=== PATIENT | female | born 1995 | race African-American/Black ===

== ENCOUNTER 2019-12-09 22:50 | Emergency (ER) | payer MEDICAID ==
[2019-12-09] MEDS ORDERED: LABETALOL HCL INJ 20 MG/4 ML DISP.SYRIN IV ONE (23:42)
--- NOTE | 2019-12-09 23:49 | ER Document Report ---
ED Blood Pressure Problem - General Chief Complaint: High Blood Pressure Stated Complaint: BLOOD PRESSURE Time Seen by Provider: 12/09/19 23:06 Primary Care Provider: [facility] [Provider Group] - 12/10/19 8:00 am Notes: Generally healthy 22-year-old G1, P0 28-week female presents to the emergency department with chief complaint of hypertension. Patient states that she just moved from [place], had a complete work-up and does not have any evidence of preeclampsia. Patient states she is unclear if she was hypertensive prior to but did get a diagnosis of gestational hypertension from her OB in [place]. Patient denies any vision changes, headache, epigastric or right upper quadrant pain, denies any peripheral swelling, no other complaints - Related Data Allergies/Adverse Reactions: strawberry Adverse Reaction (Severe, Verified 12/10/19 00:08) Hives Home Medications: LABATOLOL, PRE VITAMINS Past Medical History - Social History Smoking Status: Never Smoker Family History: None Patient has suicidal ideation: No Patient has homicidal ideation: No Review of Systems - Review of Systems Constitutional: See HPI EENT: See HPI Cardiovascular: No symptoms reported Respiratory: See HPI Gastrointestinal: See HPI Genitourinary: No symptoms reported Female Genitourinary: See HPI Musculoskeletal: No symptoms reported Skin: No symptoms reported Hematologic/Lymphatic: No symptoms reported Neurological/Psychological: No symptoms reported Physical Exam - Vital signs Vitals: Temp 100.0 F 12/09/19 22:52 - Notes Notes: PHYSICAL EXAMINATION: Reviewed vital signs and charting by RN GENERAL: Alert, interacts well. No acute distress. HEAD: Normocephalic, atraumatic. EYES: Pupils equal and round. Extraocular movements intact. ENT: Oral mucosa moist, tongue midline. NECK: Full range of motion. Trachea midline. LUNGS: Clear to auscultation bilaterally, no wheezes, rales, or rhonchi. No respiratory distress. HEART: Regular rate and rhythm. No murmur ABDOMEN: soft, non-tender. No distention. Bowel sounds present EXTREMITIES: Moves all 4 extremities spontaneously. No edema, No cyanosis. PSYCH: Normal affect, normal mood. SKIN: Warm, dry, normal turgor. No rashes or lesions noted. Course - Re-evaluation Re-evalutation: 12/09/19 23:46 Patient is well-appearing in no acute distress, completely asymptomatic. Patient states that she has been trending her blood pressures and they have been elevated. This is what prompted her to seek treatment. Patient is on labetalol 100 mg every 12 hours and is taking it as directed. After briefly discussing with my supervising physician plan is to give her labetalol 10 mg IV once and reassess. I will give her urgent referral to [facility]. 12/10/19 00:54 Patient responded to the labetalol IV, most recent blood pressure 146/101. I have given her referral to [facility]. Because she is asymptomatic she is deemed stable for discharge. She has been given strict return precautions. She is in agreement with the plan. - Vital Signs Vital signs: Temp Pulse Resp BP Pulse Ox 100.0 F 86 16 146/101 H 96 12/09/19 23:01 12/09/19 23:01 12/10/19 00:41 12/10/19 00:41 12/10/19 00:41 - Laboratory Result Diagrams: 12/09/19 23:38 12/09/19 23:38 Laboratory results interpreted by me: 12/09/19 12/09/19 23:38 23:38 WBC 12.7 H Hgb 11.1 L Hct 32.8 L RDW 15.4 H Absolute Neuts (auto) 9.0 H Sodium 133.1 L Albumin 3.3 L Discharge - Discharge Clinical Impression: Gestational hypertension Qualifiers: Trimester: third trimester Qualified Code(s): O13.3 - Gestational [- induced] hypertension without significant proteinuria, third trimester Condition: Good Disposition: HOME, SELF-CARE Additional Instructions: You were seen in the emergency department this evening for high blood pressure. It is reassuring that you are completely asymptomatic and your lab work did not show any significant changes from your previous lab work. We have given you a dose of IV antibiotics here in the emergency department to help bring it down. Please continue to take your labetalol as directed. We have given you a referral to [facility] and I want you to call them first thing tomorrow morning to set up a follow-up. Please return to the emergency department if you develop headache, blurred vision, altered mental status, peripheral swelling, right upper quadrant pain, shortness of breath, or you have any other concerning symptoms. Referrals: [facility] [Provider Group] - 12/10/19 8:00 am
[2019-12-09 23:51] LABS: ABSOLUTE BASOPHILS # (AUTO) 0.1 10^3/uL (0.0-0.2); ABSOLUTE EOSINOPHILS # (AUTO) 0.1 10^3/uL (0.0-0.6); ABSOLUTE LYMPHOCYTES (AUTO) 2.4 10^3/uL (0.5-4.7); BASOPHILS % (AUTO) 0.7 % (0-2); EOSINOPHILS % (AUTO) 0.8 % (0-6); HEMATOCRIT 32.8 % (36.0-47.0); HEMOGLOBIN 11.1 g/dL (12.0-15.5); MEAN CORPUSCULAR HEMOGLOBIN 27.4 pg (27.0-33.4); MEAN CORPUSCULAR HGB CONC 33.7 g/dL (32.0-36.0); MEAN CORPUSCULAR VOLUME 81 fl (80-97); MONOCYTES % (AUTO) 8.2 % (3-13); PLATELET COUNT 352 10^3/uL (150-450); RED BLOOD COUNT 4.04 10^6/uL (3.72-5.28); RED CELL DISTRIBUTION WIDTH 15.4 % (11.5-14.0); SEGMENTED NEUTROPHILS % (AUTO) 71.3 % (42-78); TOTAL CELLS COUNTED % (AUTO) 100 %; WHITE BLOOD COUNT 12.7 10^3/uL (4.0-10.5)
[2019-12-10 00:04] LABS: APPEARANCE,URINE CLOUDY; BILIRUBIN,URINE NEGATIVE (NEGATIVE); COLOR,URINE YELLOW; GLUCOSE, URINE NEGATIVE (NEGATIVE); KETONES,URINE NEGATIVE (NEGATIVE); LEUKOCYTE ESTERASE,URINE NEGATIVE (NEGATIVE); NITRITE,URINE NEGATIVE (NEGATIVE); PROTEIN,URINE NEGATIVE (NEGATIVE); UROBILINOGEN,URINE NEGATIVE mg/dL (<2.0)
[2019-12-10 00:11] LABS: ALBUMIN 3.3 g/dL (3.5-5.0); ALKALINE PHOSPHATASE 94 U/L (38-126); ANION GAP 7 (5-19); ASPARTATE AMINO TRANSFERASE 20 U/L (14-36); BILIRUBIN,TOTAL 0.3 mg/dL (0.2-1.3); BLOOD UREA NITROGEN 9 mg/dL (7-20); CALCIUM 9.2 mg/dL (8.4-10.2); CARBON DIOXIDE 23 mmol/L (22-30); CHLORIDE 103 mmol/L (98-107); GLUCOSE 99 mg/dL (75-110); POTASSIUM 4.5 mmol/L (3.6-5.0); TOTAL PROTEIN 6.3 g/dL (6.3-8.2)
[2019-12-10 00:46] VITALS: BP 146/101
== END 2019-12-10 01:30 | disposition home or self-care (01) ==
LOC: ER 22:50
DX: O13.3 Gestational [pregnancy-induced] hypertension without significant proteinuria, third trimester (principal); Z3A.28 28 weeks gestation of pregnancy
CPT/HCPCS: 99283; 96374; 36415; 85025; 80053; 81001; J3490

== ENCOUNTER 2020-01-17 14:42 | Outpatient (CLI) | payer MEDICAID ==
[2020-01-17] MEDS ORDERED: NIFEDIPINE 10 MG CAPSULE SL ONE (15:36)
[2020-01-17 15:39] LABS: APPEARANCE,URINE CLEAR; BILIRUBIN,URINE NEGATIVE (NEGATIVE); COLOR,URINE YELLOW; GLUCOSE, URINE NEGATIVE (NEGATIVE); KETONES,URINE NEGATIVE (NEGATIVE); LEUKOCYTE ESTERASE,URINE NEGATIVE (NEGATIVE); NITRITE,URINE NEGATIVE (NEGATIVE); PROTEIN,URINE NEGATIVE (NEGATIVE); URINE SPECIFIC GRAVITY 1.004; UROBILINOGEN,URINE NEGATIVE mg/dL (<2.0)
[2020-01-17] MEDS ORDERED: NIFEDIPINE 10 MG CAPSULE ONE (15:43)
[2020-01-17 15:58] LABS: UR PRO/CREAT RATIO RESULT 0.4 mg/mg (0.0-0.2); URINE AMPHETAMINES SCREEN NEGATIVE; URINE BARBITURATES SCREEN NEGATIVE; URINE BENZODIAZEPINES SCREEN NEGATIVE; URINE COCAINE SCREEN NEGATIVE; URINE CREATININE 64.7 mg/dL (16-327); URINE MARIJUANA (THC) SCREEN NEGATIVE; URINE METHADONE SCREEN NEGATIVE; URINE PHENCYCLIDINE SCREEN NEGATIVE; URINE PROTEIN 25.5 mg/dL (<12)
[2020-01-17 16:35] LABS: ABSOLUTE EOSINOPHILS # (AUTO) 0.1 10^3/uL (0.0-0.6); ABSOLUTE LYMPHOCYTES (AUTO) 1.6 10^3/uL (0.5-4.7); ABSOLUTE MONOCYTES (AUTO) 0.8 10^3/uL (0.1-1.4); ABSOLUTE NEUT (AUTO) 5.2 10^3/uL (1.7-8.2); BASOPHILS % (AUTO) 0.4 % (0-2); EOSINOPHILS % (AUTO) 1.9 % (0-6); HEMATOCRIT 35.4 % (36.0-47.0); LYMPHOCYTES % (AUTO) 20.4 % (13-45); MEAN CORPUSCULAR HEMOGLOBIN 27.8 pg (27.0-33.4); MEAN CORPUSCULAR HGB CONC 33.8 g/dL (32.0-36.0); MEAN CORPUSCULAR VOLUME 82 fl (80-97); MONOCYTES % (AUTO) 10.6 % (3-13); PLATELET COUNT 249 10^3/uL (150-450); RED BLOOD COUNT 4.31 10^6/uL (3.72-5.28); SEGMENTED NEUTROPHILS % (AUTO) 66.7 % (42-78); TOTAL CELLS COUNTED % (AUTO) 100 %; WHITE BLOOD COUNT 7.7 10^3/uL (4.0-10.5)
[2020-01-17 16:37] LABS: ALBUMIN 3.4 g/dL (3.5-5.0); ALKALINE PHOSPHATASE 140 U/L (38-126); ANION GAP 6 (5-19); ASPARTATE AMINO TRANSFERASE 39 U/L (14-36); BILIRUBIN,TOTAL 0.2 mg/dL (0.2-1.3); BLOOD UREA NITROGEN 10 mg/dL (7-20); CALCIUM 9.1 mg/dL (8.4-10.2); CARBON DIOXIDE 24 mmol/L (22-30); CHLORIDE 102 mmol/L (98-107); GLUCOSE 78 mg/dL (75-110); POTASSIUM 4.4 mmol/L (3.6-5.0); TOTAL PROTEIN 6.4 g/dL (6.3-8.2); URIC ACID 6.1 mg/dL (2.5-6.2)
--- NOTE | 2020-01-18 02:45 | Non Stress Test Report ---
Non Stress Test Datetime Report Generated by CPN: 01/18/2020 02:45 DEMOGRAPHIC EGA NST: 33.4 MONITORING Monitor Explained: Monitor Explained; Test Explained; Patient Verbalized Understanding Time on Monitor: 01/17/2020 15:00 Time off Monitor: 01/17/2020 15:30 NST Duration: 30 NST INTERVENTIONS NST Interventions: None Physician Notified NST: Dr. Chand and A Pugh,CNM BABY A: [id number] BABY A Movement : Present Contraction Frequency : None FHR Baseline : 140 Accelerations : 15X15 Decelerations : None Variability : Moderate 6-25bpm NST Review: Questionable if Meets Criteria for Reactive NST NST Review and Verified By : Emilio Brooks RN NST Results: Reactive NST REPORT Report Trigger: Send Report
--- NOTE | 2020-01-18 03:09 | Admission Physical ---
Datetime Report Generated by CPN: 01/18/2020 03:09 CURRENT ADMISSION Chief Complaint: Signs/Symptoms Gestational HTN Indication for Induction: Not Applicable Admit Impression : , Intrauterine Admit Plan: Admit to Unit ALLERGIES Medication Allergies: No Medication Allergies: strawberry/SV/Hives (12/10/2019) OBSTETRICAL HISTORY EDC: 03/02/2020 00:00 : 1 Para: 0 Term: 0 : 0 SAB: 0 IAB: 0 Livin PHYSICAL EXAM General: Normal HEENT: Normal Neurologic: Normal Thyroid: Normal Heart: Normal Lungs: Normal Breast: Deferred Back: Normal Abdomen: Normal Genitourinary Exam: Normal Extremities: Normal DTRs: Normal Pelvic Type: Adequate Vital Signs: Reviewed FETUS A EGA: 33.5 FHR- Baseline: 130 Variability: Moderate 6-25bpm Decelerations: None FHR Category: Category I Admit Comment: Admit and evaluate for severe pre e. INFORMED CONSENT Signature: with User ID: [email or web address]
--- NOTE | 2020-01-18 05:05 | Non Stress Test Report ---
Non Stress Test Datetime Report Generated by CPN: 01/18/2020 05:05 DEMOGRAPHIC EGA NST: 33.5 INDICATION Indication for Study (NST) Other: gestational age > 32 weeks MONITORING Monitor Explained: Monitor Explained; Test Explained; Patient Verbalized Understanding Time on Monitor: 01/18/2020 03:01 Time off Monitor: 01/18/2020 03:34 NST Duration: 33 NST INTERVENTIONS NST Interventions: PO Hydration; Reposition Patient Physician Notified NST: dr mercer BABY A Movement : Present Contraction Frequency : 0 FHR Baseline : 135 Accelerations : 15X15 Decelerations : None Variability : Moderate 6-25bpm NST Review: Meets Criteria for Reactive NST NST Review and Verified By : Shona Lacey RN NST Results: Reactive NST REPORT Report Trigger: Send Report
== END 2020-01-17 17:16 | disposition home or self-care (01) ==
LOC: LC 14:42
PROVIDERS: ATTEND Obstetrics & Gynecology
DX: O36.8320 Maternal care for abnormalities of the fetal heart rate or rhythm, second trimester, not applicable or unspecified (principal); O13.3 Gestational [pregnancy-induced] hypertension without significant proteinuria, third trimester; O60.03 Preterm labor without delivery, third trimester; Z3A.33 33 weeks gestation of pregnancy
CPT/HCPCS: 59025; 36415; 83615; 84156; 84550; 82570; 85025; 80053; 81001; 80307; J3490

== ENCOUNTER 2020-01-18 02:43 | Inpatient (IN) | payer MEDICAID ==
[2020-01-18] MEDS ORDERED: RINGERS SOLUTION,LACTATED 1,000 ML IV ONE (03:12)
[2020-01-18] MEDS ORDERED: HYDRALAZINE HCL INJ/PF 20 MG/1 ML SDV IV ONE ×5 (03:13→17:07)
[2020-01-18] MEDS ORDERED: HYDRALAZINE HCL INJ/PF 20 MG/1 ML SDV ONE ×5 (03:17→20:25)
[2020-01-18 03:34] LABS: ABSOLUTE BASOPHILS # (AUTO) 0.1 10^3/uL (0.0-0.2); ABSOLUTE EOSINOPHILS # (AUTO) 0.2 10^3/uL (0.0-0.6); ABSOLUTE LYMPHOCYTES (AUTO) 2.5 10^3/uL (0.5-4.7); ABSOLUTE MONOCYTES (AUTO) 0.9 10^3/uL (0.1-1.4); ABSOLUTE NEUT (AUTO) 5.8 10^3/uL (1.7-8.2); BASOPHILS % (AUTO) 0.8 % (0-2); HEMATOCRIT 34.9 % (36.0-47.0); HEMOGLOBIN 11.8 g/dL (12.0-15.5); LYMPHOCYTES % (AUTO) 26.4 % (13-45); MEAN CORPUSCULAR HEMOGLOBIN 27.3 pg (27.0-33.4); MEAN CORPUSCULAR HGB CONC 33.9 g/dL (32.0-36.0); MEAN CORPUSCULAR VOLUME 81 fl (80-97); MONOCYTES % (AUTO) 9.9 % (3-13); PLATELET COUNT 244 10^3/uL (150-450); RED BLOOD COUNT 4.34 10^6/uL (3.72-5.28); RED CELL DISTRIBUTION WIDTH 16.7 % (11.5-14.0); SEGMENTED NEUTROPHILS % (AUTO) 60.9 % (42-78); TOTAL CELLS COUNTED % (AUTO) 100 %; WHITE BLOOD COUNT 9.5 10^3/uL (4.0-10.5)
[2020-01-18] MEDS ORDERED: OXYCODONE-ACETAMINOPHEN 5-325 MG TABLET PO PRN (04:13)
[2020-01-18] MEDS ORDERED: OXYCODONE-ACETAMINOPHEN 5-325 MG TABLET ONE (04:20)
[2020-01-18] MEDS ORDERED: LABETALOL HCL 200 MG TABLET ONE ×4 (07:48→23:57)
[2020-01-18] MEDS ORDERED: LABETALOL HCL 200 MG TABLET PO SCH ×2 (08:00→16:00)
[2020-01-18] MEDS ORDERED: LABETALOL HCL 200 MG TABLET PO ONE (08:51)
--- NOTE | 2020-01-18 08:57 | RADIOLOGY REPORT (SQ) ---
EXAM DESCRIPTION: U/S OB LIMITED IMAGES COMPLETED DATE/TIME: 01/18/2020 5:03 am REASON FOR STUDY: estimated weight COMPARISON: None. TECHNIQUE: Limited transabdominal grayscale ultrasound for evaluation of specific requested obstetri manisha parameters. LIMITATIONS: None. FINDINGS: CERVICAL LENGTH: 3 cm Closed. SAM: 10.4 cm. FHR: 150 beats per minute. PRESENTATION: Vertex. PLACENTA: Anterior ANATOMY: Not assessed EFW: 3 lbs 8 oz +/- 8 oz OTHER: No other findings. IMPRESSION: LIMITED OBSTETRICAL ULTRASOUND WITH MEASURED PARAMETERS DELINEATED ABOVE. Trimester of : Third trimester - 28 weeks to delivery. TECHNICAL DOCUMENTATION: JOB ID: [id number] 2010 [employer]- All Rights Reserved Reading location - IP/workstation name: [email or web address]
[2020-01-18] MEDS ORDERED: BETAMET ACET/BETAMET NA INJ 6 MG/1 ML ONE (09:01)
[2020-01-18 09:25] LABS: ABSOLUTE BASOPHILS # (AUTO) 0.1 10^3/uL (0.0-0.2); ABSOLUTE EOSINOPHILS # (AUTO) 0.2 10^3/uL (0.0-0.6); ABSOLUTE LYMPHOCYTES (AUTO) 1.9 10^3/uL (0.5-4.7); ABSOLUTE MONOCYTES (AUTO) 0.6 10^3/uL (0.1-1.4); ABSOLUTE NEUT (AUTO) 5.5 10^3/uL (1.7-8.2); BASOPHILS % (AUTO) 0.8 % (0-2); EOSINOPHILS % (AUTO) 2.4 % (0-6); HEMATOCRIT 37.3 % (36.0-47.0); HEMOGLOBIN 12.4 g/dL (12.0-15.5); LYMPHOCYTES % (AUTO) 23.1 % (13-45); MEAN CORPUSCULAR HEMOGLOBIN 27.1 pg (27.0-33.4); MEAN CORPUSCULAR HGB CONC 33.3 g/dL (32.0-36.0); MEAN CORPUSCULAR VOLUME 82 fl (80-97); MONOCYTES % (AUTO) 7.7 % (3-13); PLATELET COUNT 261 10^3/uL (150-450); RED BLOOD COUNT 4.57 10^6/uL (3.72-5.28); RED CELL DISTRIBUTION WIDTH 17.1 % (11.5-14.0); TOTAL CELLS COUNTED % (AUTO) 100 %; WHITE BLOOD COUNT 8.3 10^3/uL (4.0-10.5)
[2020-01-18] MEDS ORDERED: BUTALB/ACETAMINOPHEN/CAFFEINE 1 TAB EACH ONE (09:26)
[2020-01-18] MEDS ORDERED: BUTALB/ACETAMINOPHEN/CAFFEINE 1 TAB EACH PO ONE (09:28)
[2020-01-18 09:45] LABS: ALBUMIN 3.3 g/dL (3.5-5.0); ALKALINE PHOSPHATASE 144 U/L (38-126); ANION GAP 8 (5-19); ASPARTATE AMINO TRANSFERASE 38 U/L (14-36); BILIRUBIN,TOTAL 0.2 mg/dL (0.2-1.3); BLOOD UREA NITROGEN 13 mg/dL (7-20); CALCIUM 9.2 mg/dL (8.4-10.2); CARBON DIOXIDE 20 mmol/L (22-30); CHLORIDE 106 mmol/L (98-107); GLUCOSE 112 mg/dL (75-110); POTASSIUM 3.9 mmol/L (3.6-5.0); TOTAL PROTEIN 6.2 g/dL (6.3-8.2); URIC ACID 6.2 mg/dL (2.5-6.2)
--- NOTE | 2020-01-18 10:20 | PDOC PROGRESS REPORT ---
Subjective Progress Note for:: 01/18/20 Subjective:: Doing well. Still mild TAOBR after percocet last night. Rates at 4/10 . No CP, SOB, RUQ pain or vision changes. Denies N/v She reports hx of migraines and TABOR form tooth grinding for which FIoricet has helped previoulsy. Good FM. NO LOF or VB Reason For Visit: Physical Exam - Physical Exam Vital Signs: Intake & Output 01/17/20 01/18/20 01/19/20 06:59 06:59 06:59 Weight 107.1 kg General appearance: PRESENT: no acute distress Respiratory exam: PRESENT: clear to auscultation keri Cardiovascular exam: PRESENT: RRR, +S1, +S2 GI/Abdominal exam: PRESENT: normal bowel sounds, soft - NOn-tender Neurological exam: PRESENT: alert, awake, oriented to person, oriented to place, oriented to time Psychiatric exam: PRESENT: appropriate affect, normal mood Skin exam: PRESENT: dry, intact, warm Result Laboratory Results: 01/18/20 08:59 01/18/20 08:59 01/18/20 01/18/20 01/18/20 03:21 03:21 08:59 WBC 9.5 8.3 RBC 4.34 4.57 Hgb 11.8 L 12.4 Hct 34.9 L 37.3 MCV 81 82 MCH 27.3 27.1 MCHC 33.9 33.3 RDW 16.7 H 17.1 H Plt Count 244 261 Seg Neutrophils % 60.9 66.0 Sodium Potassium Chloride Carbon Dioxide Anion Gap BUN Creatinine Est GFR ( Amer) Glucose Uric Acid Calcium Total Bilirubin AST Alkaline Phosphatase Total Protein Albumin Blood Type A POSITIVE Antibody Screen NEGATIVE 01/18/20 08:59 WBC RBC Hgb Hct MCV MCH MCHC RDW Plt Count Seg Neutrophils % Sodium 133.5 L Potassium 3.9 Chloride 106 Carbon Dioxide 20 L Anion Gap 8 BUN 13 Creatinine 0.73 Est GFR ( Amer) > 60 Glucose 112 H Uric Acid 6.2 Calcium 9.2 Total Bilirubin 0.2 AST 38 H Alkaline Phosphatase 144 H Total Protein 6.2 L Albumin 3.3 L Blood Type Antibody Screen Impressions: Obstetrics Ultrasound 01/18/20 03:50 IMPRESSION: LIMITED OBSTETRICAL ULTRASOUND WITH MEASURED PARAMETERS DELINEATED ABOVE. Trimester of : Third trimester - 28 weeks to delivery. Assessment & Plan - Diagnosis (2) Headache Qualifiers: Headache type: unspecified Is this a current diagnosis for this admission?: Yes - Time Time Spent with patient: Less than 15 minutes - Plan Summary Plan Summary: 24 yo G1 at 33.5 wks EGA admitted for severe range blood pressures in : Rule out preeclampsia -VS Q 4 hrs, call for severe range b/p >160 systolic or > 110 diastolic -NST BID -OUt of bed as tolerating -Regular diet -BMZ x1 this AM. THis is her second course ( she had BMZ x2 at approx 27 wks EGA ) Repeat in am (dose #2 this course) -GBS obtained on admit -24 urine pending. P:C 0.4 -B/P still elevated on home med Labetolol 200gm TID and reports TABOR after nifedipine SL and PO given yesterday. WIll stop Nifedipine and double dose of labetolol to 400mg TID -US yesterday normal -Continue montioring and if severe preE dx by 24 hour urine the recommend IOL in 34 wks. If negative can monitor closely outpatient once b/p control obtained
[2020-01-18] MEDS: RINGERS SOLUTION,LACTATED 1,000 ML IV PRN ×2 (10:35→12:04)
[2020-01-18 18:15] LABS: 24 HOUR URINE PROTEIN RESULT 1467 mg/day (42-225); URINE PROTEIN 38.2 mg/dL (<12)
[2020-01-18] MEDS: HYDRALAZINE HCL 10 MG TABLET PO SCH (18:17)
[2020-01-18 19:59] LABS: ABSOLUTE LYMPHOCYTES (AUTO) 0.9 10^3/uL (0.5-4.7); ABSOLUTE MONOCYTES (AUTO) 0.2 10^3/uL (0.1-1.4); BASOPHILS % (AUTO) 0.1 % (0-2); HEMATOCRIT 37.4 % (36.0-47.0); HEMOGLOBIN 12.6 g/dL (12.0-15.5); MEAN CORPUSCULAR HEMOGLOBIN 27.7 pg (27.0-33.4); MEAN CORPUSCULAR HGB CONC 33.8 g/dL (32.0-36.0); MEAN CORPUSCULAR VOLUME 82 fl (80-97); MONOCYTES % (AUTO) 1.8 % (3-13); PLATELET COUNT 278 10^3/uL (150-450); RED BLOOD COUNT 4.57 10^6/uL (3.72-5.28); RED CELL DISTRIBUTION WIDTH 17.2 % (11.5-14.0); SEGMENTED NEUTROPHILS % (AUTO) 89.1 % (42-78); TOTAL CELLS COUNTED % (AUTO) 100 %; WHITE BLOOD COUNT 10.1 10^3/uL (4.0-10.5)
[2020-01-18 20:16] LABS: ALBUMIN 3.3 g/dL (3.5-5.0); ALKALINE PHOSPHATASE 144 U/L (38-126); ANION GAP 8 (5-19); ASPARTATE AMINO TRANSFERASE 35 U/L (14-36); BILIRUBIN,TOTAL 0.2 mg/dL (0.2-1.3); BLOOD UREA NITROGEN 15 mg/dL (7-20); CALCIUM 9.3 mg/dL (8.4-10.2); CARBON DIOXIDE 19 mmol/L (22-30); CHLORIDE 103 mmol/L (98-107); GLUCOSE 169 mg/dL (75-110); POTASSIUM 4.6 mmol/L (3.6-5.0); TOTAL PROTEIN 6.6 g/dL (6.3-8.2); URIC ACID 5.9 mg/dL (2.5-6.2)
[2020-01-18] MEDS ORDERED: MAGNESIUM SULFATE 4 GM/100 ML RTUPB IV ONE ×2 (20:45→21:01)
[2020-01-18] MEDS ORDERED: HYDROXYZINE PAMOATE 50 MG CAPSULE PO ONE (20:48)
[2020-01-18] MEDS ORDERED: DINOPROSTONE 10 MG VAGINAL INSERT.SR PV ONE (21:00)
[2020-01-18] MEDS ORDERED: HYDROXYZINE PAMOATE 50 MG CAPSULE ONE (21:01)
[2020-01-18] MEDS ORDERED: MAGNESIUM SULFATE 20 GM/500 ML RTUINJ IV ONE (21:01)
[2020-01-18] MEDS ORDERED: DINOPROSTONE 10 MG VAGINAL INSERT.SR ONE (21:02)
[2020-01-18] MEDS: MAGNESIUM SULFATE 20 GM/500 ML RTUINJ IV PRN (22:04)
[2020-01-19] MEDS ORDERED: HYDRALAZINE HCL 10 MG TABLET PO SCH
[2020-01-19] MEDS: HYDRALAZINE HCL 10 MG TABLET PO SCH ×4 (00:02→17:56)
[2020-01-19] MEDS: LABETALOL HCL 200 MG TABLET PO SCH ×3 (00:02→16:44)
[2020-01-19] MEDS ORDERED: BETAMET ACET/BETAMET NA INJ 6 MG/1 ML ONE (06:03)
[2020-01-19 06:22] LABS: ABSOLUTE LYMPHOCYTES (AUTO) 1.5 10^3/uL (0.5-4.7); ABSOLUTE MONOCYTES (AUTO) 0.7 10^3/uL (0.1-1.4); ABSOLUTE NEUT (AUTO) 12.5 10^3/uL (1.7-8.2); BASOPHILS % (AUTO) 0.3 % (0-2); HEMATOCRIT 33.4 % (36.0-47.0); HEMOGLOBIN 11.3 g/dL (12.0-15.5); LYMPHOCYTES % (AUTO) 9.9 % (13-45); MEAN CORPUSCULAR HEMOGLOBIN 27.4 pg (27.0-33.4); MEAN CORPUSCULAR HGB CONC 33.7 g/dL (32.0-36.0); MEAN CORPUSCULAR VOLUME 81 fl (80-97); MONOCYTES % (AUTO) 4.6 % (3-13); PLATELET COUNT 223 10^3/uL (150-450); RED BLOOD COUNT 4.11 10^6/uL (3.72-5.28); RED CELL DISTRIBUTION WIDTH 16.9 % (11.5-14.0); SEGMENTED NEUTROPHILS % (AUTO) 85.2 % (42-78); TOTAL CELLS COUNTED % (AUTO) 100 %; WHITE BLOOD COUNT 14.6 10^3/uL (4.0-10.5)
[2020-01-19 06:58] LABS: ALBUMIN 2.8 g/dL (3.5-5.0); ALKALINE PHOSPHATASE 147 U/L (38-126); ANION GAP 6 (5-19); ASPARTATE AMINO TRANSFERASE 39 U/L (14-36); BILIRUBIN,TOTAL 0.3 mg/dL (0.2-1.3); BLOOD UREA NITROGEN 12 mg/dL (7-20); CALCIUM 7.7 mg/dL (8.4-10.2); CARBON DIOXIDE 18 mmol/L (22-30); CHLORIDE 104 mmol/L (98-107); GLUCOSE 91 mg/dL (75-110); POTASSIUM 4.5 mmol/L (3.6-5.0); TOTAL PROTEIN 5.7 g/dL (6.3-8.2); URIC ACID 6.2 mg/dL (2.5-6.2)
[2020-01-19 08:23] LABS: CHLAM PCR NOT DETECTED (NOT DETECT)
[2020-01-19] MEDS ORDERED: MAGNESIUM SULFATE 20 GM/500 ML RTUINJ IV ONE (08:51)
[2020-01-19] MEDS: MAGNESIUM SULFATE 20 GM/500 ML RTUINJ IV PRN (08:53)
[2020-01-19] MEDS ORDERED: OXYTOCIN/0.9 % SODIUM CHLORIDE 30 UNIT/500 ML RTUINJ IV PRN ×2 (09:32→23:52)
[2020-01-19] MEDS ORDERED: LABETALOL HCL 200 MG TABLET ONE ×2 (09:39→16:20)
[2020-01-19] MEDS ORDERED: OXYTOCIN/0.9 % SODIUM CHLORIDE 30 UNIT/500 ML RTUINJ ONE ×2 (09:45→22:20)
[2020-01-19] MEDS ORDERED: PENICILLIN G POTASSIUM 5,000,000 UNIT in DEXTROSE 5%-WATER 100 ML IV ONE (10:37)
[2020-01-19] MEDS ORDERED: PENICILLIN G-K 5 MILLION UNIT VIAL ONE (10:38)
[2020-01-19] MEDS ORDERED: HYDRALAZINE HCL INJ/PF 20 MG/1 ML SDV IV ONE (11:41)
[2020-01-19] MEDS ORDERED: HYDRALAZINE HCL INJ/PF 20 MG/1 ML SDV ONE (11:43)
[2020-01-19] MEDS ORDERED: MAGNESIUM SULFATE 20 GM/500 ML RTUINJ IV PRN (12:00)
[2020-01-19] MEDS: PENICILLIN G POTASSIUM 2,500,000 UNIT in DEXTROSE 5%-WATER 50 ML IV SCH ×2 (14:59→19:34)
[2020-01-19] MEDS: RINGERS SOLUTION,LACTATED 1,000 ML IV PRN (19:34)
[2020-01-19] MEDS ORDERED: METHYLERGONOVINE MALEATE INJ/PF 0.2 MG/1 ML AMPULE ONE (21:59)
[2020-01-19] MEDS ORDERED: CITRIC ACID/SODIUM CITRATE ORAL SOLN 15 ML UDCUP ONE (21:59)
[2020-01-19] MEDS ORDERED: MISOPROSTOL 0.2 MG TABLET ONE ×2 (21:59→22:15)
[2020-01-19] MEDS ORDERED: CEFAZOLIN 1 GM/D5W RTU 2 GM/100 ML RTUPB IV ONE (21:59)
--- NOTE | 2020-01-19 22:00 | Brief Operative Note ---
BRIEF OPERATIVE REPORT DATE OF SURGERY: 01/19/20 TIME OF SURGERY: 22:30 PREOPERATIVE DIAGNOSIS: 33+6ega, Severe PreE, Nonreassuring FHTs, IUGR. POSTOPERATIVE DIAGNOSIS: CHANDRA SURGEON: MAGALY UGALDE FINDINGS: VFI delivered at 2256, weight 3#0.6oz (1379g), Apgars 4/7. IVF 1000ml, UOP 400ml, EBL 800ml. QBL 500ml COMPLICATIONS: None ESTIMATED BLOOD LOSS: 800ml TISSUE REMOVED OR ALTERED: placenta and cord sent to pathology TECHNICAL PROCEDURE: Primary section.
[2020-01-19] MEDS ORDERED: PHENYLEPHRINE HCL INJ/PF 10 MG/1 ML SDV ONE (22:19)
[2020-01-19] MEDS ORDERED: KETOROLAC TROMETHAMINE INJ/PF 30 MG/1 ML SDV ONE (22:19)
[2020-01-19] MEDS ORDERED: MIDAZOLAM 2 MG/2 ML INJ ONE (22:19)
[2020-01-19] MEDS ORDERED: FENTANYL CITRATE INJ/PF 100 MCG/2 ML AMPUL ONE (22:19)
[2020-01-19] MEDS ORDERED: GLYCOPYRROLATE INJ 0.4 MG/2 ML VIAL ONE (22:19)
[2020-01-19] MEDS ORDERED: OXYTOCIN 10 UNIT/ML VIAL ONE ×2 (22:19→22:24)
[2020-01-19] MEDS ORDERED: ONDANSETRON HCL INJ/PF 4 MG/2 ML SDV ONE (22:20)
[2020-01-19] MEDS ORDERED: CEFAZOLIN SODIUM 2 GM in DEXTROSE 5%-WATER 50 ML IV PRN (22:22)
[2020-01-19 22:25] LABS: ABSOLUTE LYMPHOCYTES (AUTO) 1.2 10^3/uL (0.5-4.7); ABSOLUTE MONOCYTES (AUTO) 0.6 10^3/uL (0.1-1.4); ABSOLUTE NEUT (AUTO) 13.9 10^3/uL (1.7-8.2); BASOPHILS % (AUTO) 0.1 % (0-2); HEMOGLOBIN 11.5 g/dL (12.0-15.5); LYMPHOCYTES % (AUTO) 7.5 % (13-45); MEAN CORPUSCULAR HGB CONC 32.8 g/dL (32.0-36.0); MEAN CORPUSCULAR VOLUME 82 fl (80-97); PLATELET COUNT 264 10^3/uL (150-450); RED BLOOD COUNT 4.26 10^6/uL (3.72-5.28); RED CELL DISTRIBUTION WIDTH 17.7 % (11.5-14.0); SEGMENTED NEUTROPHILS % (AUTO) 88.4 % (42-78); TOTAL CELLS COUNTED % (AUTO) 100 %; WHITE BLOOD COUNT 15.7 10^3/uL (4.0-10.5)
[2020-01-19] MEDS ORDERED: CARBOPROST TROMETHAMINE INJ 250 MCG/1 ML AMPULE ONE (22:25)
[2020-01-19 22:59] LABS: ALBUMIN 2.9 g/dL (3.5-5.0); ALKALINE PHOSPHATASE 147 U/L (38-126); ASPARTATE AMINO TRANSFERASE 38 U/L (14-36); BILIRUBIN,TOTAL 0.3 mg/dL (0.2-1.3); BLOOD UREA NITROGEN 11 mg/dL (7-20); CALCIUM 7.2 mg/dL (8.4-10.2); CARBON DIOXIDE 21 mmol/L (22-30); CHLORIDE 103 mmol/L (98-107); GLUCOSE 111 mg/dL (75-110); TOTAL PROTEIN 5.7 g/dL (6.3-8.2); URIC ACID 6.1 mg/dL (2.5-6.2)
[2020-01-19 23:05] LABS: ANION GAP 4 (5-19)
[2020-01-19] MEDS ORDERED: ACETAMINOPHEN 1,000 MG/100 ML RTUPB IV PRN (23:52)
[2020-01-19] MEDS ORDERED: PROMETHAZINE HCL INJ 25 MG/1 ML VIAL IV PRN (23:52)
[2020-01-19] MEDS ORDERED: HYDROMORPHONE HCL INJ/PF 2 MG/ML AMPULE IV PRN (23:52)
[2020-01-19] MEDS ORDERED: OXYCODONE-ACETAMINOPHEN 5-325 MG TABLET PO PRN (23:52)
[2020-01-19] MEDS ORDERED: DIPH/PERTUSS(ACELL)/TETANUS VAC/PF 0.5 ML SYR (>=10YO) IM PRN (23:52)
[2020-01-19] MEDS ORDERED: MEASLES,MUMPS&RUBELLA VACC/PF 0.5 ML VIAL SUBCUT PRN (23:52)
[2020-01-19] MEDS ORDERED: ACETAMINOPHEN 325 MG TABLET PO PRN (23:52)
[2020-01-19] MEDS ORDERED: MISOPROSTOL 0.1 MG TABLET PR ONE (23:54)
[2020-01-20] MEDS ORDERED: MEPERIDINE HCL/PF INJ 25 MG/1 ML DISP.SYRIN ONE (00:09)
[2020-01-20] MEDS ORDERED: MAGNESIUM SULFATE 20 GM/500 ML RTUINJ IV ONE ×2 (00:33→20:53)
[2020-01-20] MEDS: MAGNESIUM SULFATE 20 GM/500 ML RTUINJ IV PRN (00:46)
[2020-01-20] MEDS ORDERED: HYDRALAZINE HCL INJ/PF 20 MG/1 ML SDV IV ONE (00:55)
[2020-01-20] MEDS ORDERED: HYDRALAZINE HCL INJ/PF 20 MG/1 ML SDV ONE (00:56)
[2020-01-20] MEDS ORDERED: LABETALOL HCL 200 MG TABLET ONE ×4 (00:56→22:58)
[2020-01-20] MEDS: LABETALOL HCL 200 MG TABLET PO SCH ×3 (00:58→17:10)
[2020-01-20] MEDS ORDERED: MORPHINE SULFATE 10 MG/ML INJ ONE (01:21)
[2020-01-20] MEDS ORDERED: ACETAMINOPHEN 1,000 MG/100 ML RTUPB IV ONE (01:54)
--- NOTE | 2020-01-20 03:34 | Warning Signs in Babies ---
VOD Warning Signs Datetime Report Generated by [facility]: 01/20/2020 03:33 VOD#608 -Warning Signs in Babies: Needs to be viewed. (01/17/2020 14:49:Tono Smith RN)
--- NOTE | 2020-01-20 03:51 | Operative Report ---
Operative Report DATE OF SURGERY: 01/19/20 PREOPERATIVE DIAGNOSIS: 33+6ega, Severe PreE, Nonreassuring FHTs, IUGR POSTOPERATIVE DIAGNOSIS: CHANDRA OPERATION: Primary section SURGEON: MAGALY UGALDE ANESTHESIA: Spinal TISSUE REMOVED OR ALTERED: placenta and cord sent to pathology COMPLICATIONS: mild uterine atony ESTIMATED BLOOD LOSS: 800ml QUANTITATIVE BLOOD LOSS: 500 INTRAOPERATIVE FINDINGS: VFI delivered at 2256, weight 3#0.6oz (1379g), Apgars 4/7. IVF 1000ml, UOP 400ml, EBL 800ml. QBL 500ml, Normal bilateral tubes/ovaries. Normal uterus, Cytotec 1000mcg given DC after surgery. PROCEDURE: Anesthesia provider: [Sky Coto CRNA, Dr. Mcqueen] Urine output: [400ml] IV fluids: [1000ml] Indications: [24yo at 33+6ega admitted on 01/[address] Chand at 33+5ega with TABOR and severe range BPs. CLAUDIA 03/02/2020 by US on 12/03/2019 that was not consistent with her LMP. She recently moved to the area and per records was admitted to hospital and given steroids 12/03/2019 and dx with GHTN with P:C ratio of 0.1. M saw her at that time and reported that US was suggestive of GHTN not CHTN. [facility] on 01/02 with EFW 1450g (3.7%). EFW on admission is 1588g and now 1%. She has been having severe range BPs and 24 hour UTP was over 1400mg (P:C 0.4). She is now moderately controlled with her BPs on Labetolol 600mg TID and Hydralazine 10mg Q 6 hours. She had cervidil overnight on 01/17 (magnesium sulfate was intitiated as well) and had intermittent decels and cervidil was removed. Pitocin and cooks catheter placed upon my arrival on 01/18 to assume care and patient tolerated well. After cooks came out AROM performed and IUPC placed due to unable to monitor contractions. MVUs were more than adequate so pitocin was decreased and the baby tolerated initially but then began to have late decelerations and reviewed with patient would re commend primary section due to NRFHTs. The risks, benefits, alternatives were reviewed and she desires to proceed with planned procedure.] Procedure: The patient was taken to the operating room where spinal anesthesia was obtained and found to be adequate. She was then prepped and draped in the normal sterile fashion and placed in the dorsal supine position with a leftward tilt. A Pfannenstiel skin incision was then made and carried through to the underlying layers of the fascia with the scalpel. The fascia was incised in the midline and the incision extended laterally with the Bailey scissors. The superior aspect of the fascial incision was then grasped with Edgardo clamps elevated and the underlying rectus muscles dissected off [bluntly]. Attention was then turned to the inferior aspect of the fascial incision which in a similar fashion was grasped, tented up with Lex clamps, and the rectus muscles dissected off [bluntly]. The rectus muscles were then in the midline and the peritoneum at the amount identified and entered [bluntly]. The peritoneal incision was then extended superiorly and inferiorly with good visualization of the bladder. The bladder blade was inserted and the vesicouterine peritoneum identified grasped with Syrian pickups and entered sharply with the Metzenbaum scissors. This incision was then extended laterally with the Metzenbaum scissors and a bladder flap created digitally. The bladder blade was then reinserted and the lower uterine segment incised in a transverse fashion with the scalpel. The uterine incision was then extended bluntly. The bladder blade was removed and the infant's head was delivered from cephalic presentation atraumatically. The nose and mouth were suctioned and the cord doubly clamped and cut. And the infant was handed off to waiting pediatricians. The placenta was then delivered spontaneously and the uterus exteriorized and cleared of all clots and debris. The uterine incision was then repaired with 1- 0 Vicryl in a running locked fashion. A second layer of the same suture was used to obtain hemostasis via imbrication of the initial layer. The bladder flap was then repaired with 3-0 chromic in a running fashion. The uterus was returned to the patient's abdomen and Surgicel was placed overlying the uterine incision to help with hemostasis. The gutters were cleared of all clots and debris. All operative sites were noted to be hemostatic. The fascia was reapproximated with 0 Vicryl in a running fashion from each lateral edge to the midline. The skin was closed with 3-0 Monocryl in a running subcuticular fashion with overlying Dermabond for additional dressing as well as wound closure. The patient tolerated the procedure well. Sponge lap needle and instrument counts are correct times 2. 2 g of Ancef were given prior to skin incision. The patient was taken to the recovery area awake and in stable condition.
--- NOTE | 2020-01-20 05:33 | Delivery Summary ---
Del Sum A-C Datetime Report Generated by CPN: 01/20/2020 05:32 DELIVERY PERSONNEL DELIVERY PERSONNEL: [id number] Delivery Doctor:: Flor Read MD Anesthesiologist:: Hoang Mcqueen MD VACUUM CASTER:: Sky Normile VACUUM CASTER Labor and Delivery Nurse:: Tono Smith RN Technical Support Intern:: Tono Smith RN Neonatal Nurse Practitioner:: NICK Del Real Nursery Nurse:: Elizabeth Mcfarlane RN Order Editor/SOLAR MANAGER: ST Thomas Order Editor/SOLAR MANAGER: Juli Mason ST MATERNAL INFORMATION Delivery Anesthesia: Spinal Medications After Delivery: Pitocin Bolus-Please Comment; Pitocin 30 Units in 500ml NS/D5W; Cytotec 1000mcg Per Rectum/Vagina Delivery QBL: 500 Maternal Complications: None LABOR SUMMARY EDC: 03/02/2020 00:00 No. Babies in Womb: 1 Attempted: No Labor Anesthesia: None LABOR INFORMATION Reason for Induction: Pre-Eclampsia Onset of Labor: 01/19/2020 10:25 Cervical Ripening Agents: Cervidil; Other Other Ripening Agents: Cooks Dotson bulb Oxytocin: Induction Group B Beta Strep: unknown Antibiotics # of Doses: 3 Antibiotics Time of Last Dose: 1933 Name of Antibiotic Given: PCN Steroids Given: Full Course Reason Steroids Not Administered: Not Applicable MEMBRANES Membranes Rupture Method: Artificial Rupture of Membranes: 01/19/2020 19:57 Length of Rupture (hr): 2.98 Amniotic Fluid Color: Clear Amniotic Fluid Amount: Moderate Amniotic Fluid Odor: Normal STAGES OF LABOR Stage 3 hr: 24 Stage 3 min: 1 Total Time in Labor hr: 36 Total Time in Labor min: 32 VAGINAL DELIVERY Episiotomy: None Laceration #1: None Laceration Extension #1: N/A Laceration Repair: Not Applicable Sponge Count Correct: N/A Sharps Count Correct: N/A CSECTION DELIVERY Primary Indication: Nonreassuring Status Secondary Indication: Secondary Arrest of Dilatation CSection Urgency: Non-Scheduled CSection Incidence: Primary Labor: Labor Elective: Nonelective CSection Incision: Lower Uterine Transverse BABY A INFORMATION Delivery Date/Time: 01/19/2020 22:56 Method of Delivery: Nurse Controlled Delivery: No Born in Route : No : N/A Forceps: N/A Vacuum Extraction: N/A Shoulder Dystocia : No PRESENTATION/POSITION BABY A Presentation: Cephalic Cephalic Presentation: Vertex Vertex Position: Right Occipital Anterior Breech Presentation: N/A PLACENTA INFORMATION BABY A Placenta Delivery Time : 01/20/2020 22:57 Placenta Method of Delivery: Manual Removal Placenta Status: Delivered SCORES BABY A Heart Rate 1 min: >100 bpm Resp Effort 1 min: Absent Reflex Irritability 1 min: Grimace Muscle Tone 1 min: Some Flexion of Extremities Color 1 min: Blue/Pale Resuscitation Effort 1 min: Tactile Stimulation; PPV/NCPAP SCORE 1 MIN: 4 Heart Rate 5 min: >100 bpm Resp Effort 5 min: Good Cry Reflex Irritability 5 min: Grimace Muscle Tone 5 min: Some Flexion of Extremities Color 5 min: Body [place], Extremities Blue Resuscitation Effort 5 min: PPV/NCPAP SCORE 5 MIN: 7 INFORMATION BABY A Gestational Age at Delivery: 33.6 Gestational Status: - <34 Weeks Outcome : Liveborn Condition : Stable Infant Sex: Female IDENTIFICATION BABY A Verification Date/Time: 01/19/2020 23:22 ID Band Number: [id number] Mother's Name Verified: Yes RN Verifying : K John, RN/A Chalman RN WEIGHT/LENGTH BABY A Infant Birthweight (gm): 1379 Infant Weight (lb): 3 Infant Weight (oz): 1 Length (in): 16.00 Infant Length (cm): 40.64 CORD INFORMATION BABY A No. Cord Vessels: . Nuchal Cord : N/A Cord Blood Taken: Yes-For Storage (Mom's Blood type +) Suction: Mouth ASSESSMENT BABY A Infant Complications: Decreased Variability; Multiple Late Decels; Multiple Variable Decels Physical Findings at Delivery: Other Physical Findings- Other: See full nursery grain merchandising manager Respirations: Grunting Skin to Skin: No Statement Distribution Clerk/ALS Called : No Infant Care By: Kurt Cardenas DOOR LINER HELPER; Akil Mcfarlane RN Transferred To: NICU BABY B INFORMATION : N/A
[2020-01-20 06:47] LABS: HEMATOCRIT 31.5 % (36.0-47.0); HEMOGLOBIN 10.4 g/dL (12.0-15.5); MEAN CORPUSCULAR HEMOGLOBIN 27.4 pg (27.0-33.4); MEAN CORPUSCULAR HGB CONC 32.9 g/dL (32.0-36.0); MEAN CORPUSCULAR VOLUME 83 fl (80-97); PLATELET COUNT 185 10^3/uL (150-450); RED BLOOD COUNT 3.79 10^6/uL (3.72-5.28); RED CELL DISTRIBUTION WIDTH 17.4 % (11.5-14.0); WHITE BLOOD COUNT 18.1 10^3/uL (4.0-10.5)
[2020-01-20] MEDS: RINGERS SOLUTION,LACTATED 1,000 ML IV PRN ×2 (06:55→18:46)
[2020-01-20] MEDS: PENICILLIN G POTASSIUM 2,500,000 UNIT in DEXTROSE 5%-WATER 50 ML IV SCH ×3 (09:08→11:21)
[2020-01-20] MEDS: IBUPROFEN 800 MG TABLET PO SCH ×3 (09:15→19:20)
[2020-01-20] MEDS: HYDRALAZINE HCL 10 MG TABLET PO SCH ×2 (09:15→12:06)
--- NOTE | 2020-01-20 09:55 | Warning Signs in Babies ---
VOD Warning Signs Datetime Report Generated by [facility]: 01/20/2020 09:54 VOD#608 -Warning Signs in Babies: Viewed with Parent(s)/Family (01/17/2020 14:49:Sukh Li RN)
--- NOTE | 2020-01-20 09:56 | Warning Signs in Babies ---
VOD Warning Signs Datetime Report Generated by [facility]: 01/20/2020 09:56 VOD#608 -Warning Signs in Babies: Viewed with Parent(s)/Family (01/20/2020 09:55:Sukh Li RN)
[2020-01-20] MEDS ORDERED: DOCUSATE SODIUM 100 MG CAPSULE ONE ×2 (10:06→19:17)
[2020-01-20] MEDS ORDERED: PRENATAL VITAMIN W DHA CAPSULE PO ONE (10:06)
[2020-01-20] MEDS: PRENATAL VITAMIN W DHA CAPSULE PO SCH (10:10)
[2020-01-20] MEDS: DOCUSATE SODIUM 100 MG CAPSULE PO SCH ×2 (10:10→19:20)
[2020-01-20] MEDS ORDERED: OXYCODONE-ACETAMINOPHEN 5-325 MG TABLET ONE ×3 (11:31→22:23)
[2020-01-20] MEDS: OXYCODONE-ACETAMINOPHEN 5-325 MG TABLET PO PRN ×3 (11:32→22:29)
[2020-01-20] MEDS ORDERED: IBUPROFEN 800 MG TABLET ONE ×3 (12:00→20:25)
--- NOTE | 2020-01-20 13:50 | PDOC PROGRESS REPORT ---
Subjective Progress Note for:: 01/20/20 Subjective:: POD #1, doing well pain well controlled. Reason For Visit: , s/p delivery 33+6ega, Primary Section, Severe PreE, IUGR Physical Exam - Physical Exam Vital Signs: Intake & Output 01/19/20 01/20/20 01/21/20 06:59 06:59 06:59 Intake Total 1185 1000 Balance 1185 1000 General appearance: PRESENT: no acute distress, well-developed, well-nourished Head exam: PRESENT: atraumatic, normocephalic Cardiovascular exam: PRESENT: RRR. ABSENT: diastolic murmur, rubs, systolic murmur Vascular exam: PRESENT: normal capillary refill GI/Abdominal exam: PRESENT: normal bowel sounds, tenderness - approp ttp pp, s/p section Rectal exam: PRESENT: deferred Extremities exam: PRESENT: full ROM. ABSENT: calf tenderness, clubbing, pedal edema Neurological exam: PRESENT: alert, awake, oriented to person, oriented to place, oriented to time, oriented to situation, CN II-XII grossly intact. ABSENT: motor sensory deficit Psychiatric exam: PRESENT: appropriate affect, normal mood. ABSENT: homicidal ideation, suicidal ideation Skin exam: PRESENT: dry, intact, warm. ABSENT: cyanosis, rash Result Laboratory Results: 01/20/20 05:45 01/19/20 22:07 01/19/20 01/19/20 01/20/20 22:07 22:07 05:45 WBC 15.7 H 18.1 H RBC 4.26 3.79 Hgb 11.5 L 10.4 L Hct 35.0 L 31.5 L MCV 82 83 MCH 27.0 27.4 MCHC 32.8 32.9 RDW 17.7 H 17.4 H Plt Count 264 185 Seg Neutrophils % 88.4 H Sodium 128.1 L Potassium 5.0 Chloride 103 Carbon Dioxide 21 L Anion Gap 4 L BUN 11 Creatinine 0.76 Est GFR ( Amer) > 60 Glucose 111 H Uric Acid 6.1 Calcium 7.2 L Total Bilirubin 0.3 AST 38 H Alkaline Phosphatase 147 H Total Protein 5.7 L Albumin 2.9 L 01/18/20 04:50 Vaginal/Anorectal Group B Streptococcus Culture - Final GROUP B BETA HEMOLYTIC STREPTOCOCCUS RECOVERED Impressions: Obstetrics Ultrasound 01/18/20 03:50 IMPRESSION: LIMITED OBSTETRICAL ULTRASOUND WITH MEASURED PARAMETERS DELINEATED ABOVE. Trimester of : Third trimester - 28 weeks to delivery. Status: Imported from PACS Assessment & Plan - Diagnosis (1) Non-reassuring electronic monitoring tracing Is this a current diagnosis for this admission?: Yes Plan: s/p Primary section (2) S/P primary low transverse Is this a current diagnosis for this admission?: Yes Plan: pressure dressing removed. Incision c/d/i with exofin in place (3) Severe pre-eclampsia Qualifiers: Trimester: third trimester Qualified Code(s): O14.13 - Severe pre- eclampsia, third trimester Is this a current diagnosis for this admission?: Yes Plan: s/p C/S due to NRFHTs. Will discontinue Hydralazine for now as BPs improved since delivery. UOP 2150ml (179ml/hr) (per RN they also just removed 700ml for the 12-1pm hour). Diuresis is beginning so will continue until 2300. May be able to stay overhere since she is still having difficulty sleeping - d eclines meds for now. - Time Time Spent with patient: 25-34 minutes Medications reviewed and adjusted accordingly: Yes Anticipated discharge: Home Within: within 72 hours - Inpatient Certification Based on my medical assessment, after consideration of the patient's comorbidities, presenting symptoms, or acuity I expect that the services needed warrant INPATIENT care.: Yes I certify that my determination is in accordance with my understanding of Medicare's requirements for reasonable and necessary INPATIENT services [42 CFR 412.3e].: Yes Medical Necessity: Need Close Monitoring Due to Risk of Patient Decompensation, Need for Pain Control, Need for IV Antibiotics, Risk of Complication if Not Cared For in Hospital Post Hospital Care: D/C Superintendent Drilling Documentation - Plan Summary Plan Summary: plan to keep patient on Mag until approx 2300 so that diuresis can cont.
[2020-01-20] MEDS ORDERED: SIMETHICONE 80 MG TAB.CHEW ONE (17:28)
[2020-01-20] MEDS ORDERED: ACETAMINOPHEN 325 MG TABLET ONE (20:31)
[2020-01-20] MEDS ORDERED: LABETALOL HCL 200 MG TABLET PO ONE (22:57)
[2020-01-21] MEDS ORDERED: OXYCODONE-ACETAMINOPHEN 5-325 MG TABLET ONE ×2 (01:49→06:29)
[2020-01-21] MEDS: OXYCODONE-ACETAMINOPHEN 5-325 MG TABLET PO PRN ×2 (01:52→06:30)
[2020-01-21] MEDS ORDERED: LABETALOL HCL 200 MG TABLET PO ONE ×2 (03:42→06:12)
[2020-01-21] MEDS ORDERED: LABETALOL HCL 200 MG TABLET ONE ×2 (03:47→06:15)
[2020-01-21] MEDS ORDERED: HYDRALAZINE HCL INJ/PF 20 MG/1 ML SDV ONE (07:06)
[2020-01-21] MEDS ORDERED: HYDRALAZINE HCL INJ/PF 20 MG/1 ML SDV IV ONE (07:23)
[2020-01-21] MEDS: IBUPROFEN 800 MG TABLET PO SCH ×4 (07:47→23:12)
[2020-01-21] MEDS ORDERED: SIMETHICONE 80 MG TAB.CHEW ONE (07:51)
[2020-01-21] MEDS: SIMETHICONE 80 MG TAB.CHEW PO PRN ×2 (07:57→13:09)
[2020-01-21] MEDS ORDERED: PRENATAL VITAMIN W DHA CAPSULE PO ONE (09:56)
[2020-01-21] MEDS ORDERED: DOCUSATE SODIUM 100 MG CAPSULE ONE (09:56)
[2020-01-21] MEDS: PRENATAL VITAMIN W DHA CAPSULE PO SCH (09:58)
[2020-01-21] MEDS: DOCUSATE SODIUM 100 MG CAPSULE PO SCH ×2 (09:58→18:18)
[2020-01-21] MEDS ORDERED: MEASLES,MUMPS&RUBELLA VACC/PF 0.5 ML VIAL SUBCUT PRN (11:00)
[2020-01-21] MEDS ORDERED: PROMETHAZINE HCL INJ 25 MG/1 ML VIAL IV PRN (11:00)
[2020-01-21] MEDS ORDERED: DIPH/PERTUSS(ACELL)/TETANUS VAC/PF 0.5 ML SYR (>=10YO) IM PRN (11:00)
[2020-01-21] MEDS: LABETALOL HCL 200 MG TABLET PO SCH ×2 (13:08→21:15)
--- NOTE | 2020-01-21 14:54 | PDOC PROGRESS REPORT ---
Subjective-OB Progress Note for:: 01/21/20 Subjective: Delivered on Tuesday and moved to room 216 after lunch, patient asked for me to come see her, wants to know plan of care and what can she do, now that she is pp, denies headache, eating, voiding, mother at BS, questions answered and should go home in AM Physical Exam (OB) Vital Signs: Temp Pulse Resp BP Pulse Ox 98.8 F 83 18 145/74 H 94 01/21/20 14:36 01/21/20 14:36 01/21/20 14:36 01/21/20 14:36 01/21/20 14:36 Intake & Output 01/20/20 01/21/20 01/22/20 06:59 06:59 06:59 Intake Total 1000 1000 Output Total 900 Balance 1000 1000 -900 Objective-Diagnostic Laboratory: 01/20/20 05:45 01/19/20 22:07 Assessment and Plan(PN) - Assessment and Plan (1) Gestational hypertension affecting first Is this a current diagnosis for this admission?: Yes (2) Headache Qualifiers: Headache type: unspecified Is this a current diagnosis for this admission?: Yes (3) Intrauterine growth restriction (IUGR) affecting care of mother Qualifiers: Fetus number: single or unspecified fetus Is this a current diagnosis for this admission?: Yes (4) Non-reassuring electronic monitoring tracing Is this a current diagnosis for this admission?: Yes (5) S/P primary low transverse Is this a current diagnosis for this admission?: Yes (6) Severe pre-eclampsia Qualifiers: Trimester: third trimester Qualified Code(s): O14.13 - Severe pre- eclampsia, third trimester Is this a current diagnosis for this admission?: Yes - Time Spent with Patient Time with patient: Less than 15 minutes Medications reviewed and adjusted accordingly: Yes - Disposition Anticipated Discharge: Home Within: within 48 hours
[2020-01-22] MEDS ORDERED: HYDRALAZINE HCL INJ/PF 20 MG/1 ML SDV IV ONE (02:00)
[2020-01-22] MEDS ORDERED: HYDRALAZINE HCL INJ/PF 20 MG/1 ML SDV IV PRN (02:01)
[2020-01-22] MEDS ORDERED: NIFEDIPINE 10 MG CAPSULE ONE (02:14)
[2020-01-22] MEDS ORDERED: NIFEDIPINE 10 MG CAPSULE PO ONE (02:15)
[2020-01-22] MEDS ORDERED: LABETALOL HCL 200 MG TABLET PO ONE (02:15)
[2020-01-22] MEDS: LABETALOL HCL 200 MG TABLET PO SCH ×3 (05:29→22:02)
[2020-01-22] MEDS: IBUPROFEN 800 MG TABLET PO SCH ×3 (06:01→18:55)
[2020-01-22] MEDS ORDERED: METHYLDOPA 250 MG TABLET ONE (09:19)
[2020-01-22] MEDS: PRENATAL VITAMIN W DHA CAPSULE PO SCH (09:23)
[2020-01-22] MEDS: DOCUSATE SODIUM 100 MG CAPSULE PO SCH ×2 (09:23→18:54)
[2020-01-22] MEDS ORDERED: METHYLDOPA 250 MG TABLET PO SCH (10:00)
--- NOTE | 2020-01-22 10:04 | PDOC DISCHARGE SUMMARY ---
Impression - Admit/DC Date/PCP Admission Date/Primary Care Provider: 01/18/20 03:09 MAGALY UGALDE MD Discharge Date: 01/22/20 - Pt doing well this morning, though elevated BP remains. Dr Chand in to see pt this morning and to adjust BP medication. A+., rubella Immune, pumping - Discharge Diagnosis (1) Gestational hypertension affecting first Is this a current diagnosis for this admission?: Yes (2) Headache Is this a current diagnosis for this admission?: Yes (3) Intrauterine growth restriction (IUGR) affecting care of mother Is this a current diagnosis for this admission?: Yes (4) Non-reassuring electronic monitoring tracing Is this a current diagnosis for this admission?: Yes (5) S/P primary low transverse Is this a current diagnosis for this admission?: Yes (6) Severe pre-eclampsia Is this a current diagnosis for this admission?: Yes - Additional Information Resuscitation Status: Full Code Discharge Diet: As Tolerated, Regular Discharge Activity: Activity As Tolerated, No Driving, No Lifting Over 10 Pounds, Pelvic Rest Referrals: MAGALY UGALDE MD [Primary Care Provider] - Home Medications: No Home Medications 01/19/20 HPI Reason(s) for Admission: Onset of Labor Procedures: None Intrapartum Procedure(s): : Low Cervical, Transverse Results Laboratory Results: WBC 18.1 10^3/uL (4.0-10.5) H 01/20/20 05:45 RBC 3.79 10^6/uL (3.72-5.28) 01/20/20 05:45 Hgb 10.4 g/dL (12.0-15.5) L 01/20/20 05:45 Hct 31.5 % (36.0-47.0) L 01/20/20 05:45 MCV 83 fl (80-97) 01/20/20 05:45 MCH 27.4 pg (27.0-33.4) 01/20/20 05:45 MCHC 32.9 g/dL (32.0-36.0) 01/20/20 05:45 RDW 17.4 % (11.5-14.0) H 01/20/20 05:45 Plt Count 185 10^3/uL (150-450) 01/20/20 05:45 Lymph % (Auto) 7.5 % (13-45) L 01/19/20 22:07 [place] % (Auto) 4.0 % (3-13) 01/19/20 22:07 Eos % (Auto) 0.0 % (0-6) 01/19/20 22:07 Baso % (Auto) 0.1 % (0-2) 01/19/20 22:07 Absolute Neuts (auto) 13.9 10^3/uL (1.7-8.2) H 01/19/20 22:07 Absolute Lymphs (auto) 1.2 10^3/uL (0.5-4.7) 01/19/20 22:07 Absolute Monos (auto) 0.6 10^3/uL (0.1-1.4) 01/19/20 22:07 Absolute Eos (auto) 0.0 10^3/uL (0.0-0.6) 01/19/20 22:07 Absolute Basos (auto) 0.0 10^3/uL (0.0-0.2) 01/19/20 22:07 Seg Neutrophils % 88.4 % (42-78) H 01/19/20 22:07 Sodium 128.1 mmol/L (137-145) L 01/19/20 22:07 Potassium 5.0 mmol/L (3.6-5.0) 01/19/20 22:07 Chloride 103 mmol/L (98-107) 01/19/20 22:07 Carbon Dioxide 21 mmol/L (22-30) L 01/19/20 22:07 Anion Gap 4 (5-19) L 01/19/20 22:07 BUN 11 mg/dL (7-20) 01/19/20 22:07 Creatinine 0.76 mg/dL (0.52-1.25) 01/19/20 22:07 Est GFR ( Amer) > 60 (>60) 01/19/20 22:07 Est GFR (MDRD) Non-Af > 60 (>60) 01/19/20 22:07 Glucose 111 mg/dL (75-110) H 01/19/20 22:07 Uric Acid 6.1 mg/dL (2.5-6.2) 01/19/20 22:07 Calcium 7.2 mg/dL (8.4-10.2) L 01/19/20 22:07 Total Bilirubin 0.3 mg/dL (0.2-1.3) 01/19/20 22:07 Direct Bilirubin 0.0 mg/dL (0.0-0.4) 01/19/20 22:07 Neonat Total Bilirubin Not Reportable 01/19/20 22:07 Neonat Direct Bilirubin Not Reportable 01/19/20 22:07 Neonat Indirect Bili Not Reportable 01/19/20 22:07 AST 38 U/L (14-36) H 01/19/20 22:07 ALT 52 U/L (<35) H 01/19/20 22:07 Alkaline Phosphatase 147 U/L (38-126) H 01/19/20 22:07 Lactate Dehydrogenase 292 U/L (120-246) H 01/19/20 22:07 Total Protein 5.7 g/dL (6.3-8.2) L 01/19/20 22:07 Albumin 2.9 g/dL (3.5-5.0) L 01/19/20 22:07 Ur 24 Hour Volume 3840 mL 01/18/20 17:00 Ur Total Protein 24 Hr 1467 mg/day (42-225) H 01/18/20 17:00 Urine Total Protein 38.2 mg/dL (<12) H 01/18/20 17:00 RPR NONREACTIVE (NONREACTIVE) 01/18/20 03:21 Chlamydia DNA (PCR) NOT DETECTED (NOT DETECT) 01/19/20 06:28 N.gonorrhoeae DNA (PCR) NOT DETECTED (NOT DETECT) 01/19/20 06:28 Blood Type A POSITIVE 01/18/20 03:21 Antibody Screen NEGATIVE 01/18/20 03:21 Impressions: Obstetrics Ultrasound 01/18/20 03:50 IMPRESSION: LIMITED OBSTETRICAL ULTRASOUND WITH MEASURED PARAMETERS DELINEATED ABOVE. Trimester of : Third trimester - 28 weeks to delivery. Plan Health Concerns: watch BP Plan of Treatment: Plan to d/c home later on this afternoon if BP improves by adding [place]. Dr Chand to evaluate pt again. Pt needs to f/up with [facility] in a few days for a BP check Time Spent: Less than 30 Minutes
[2020-01-22] MEDS: NIFEDIPINE 30 MG TAB.ER.24 PO SCH (11:58)
[2020-01-23] MEDS: IBUPROFEN 800 MG TABLET PO SCH ×5 (00:19→23:54)
[2020-01-23] MEDS: LABETALOL HCL 200 MG TABLET PO SCH ×3 (06:14→22:08)
[2020-01-23] MEDS: DOCUSATE SODIUM 100 MG CAPSULE PO SCH ×2 (09:25→17:32)
[2020-01-23] MEDS: PRENATAL VITAMIN W DHA CAPSULE PO SCH (09:25)
[2020-01-23] MEDS: NIFEDIPINE 30 MG TAB.ER.24 PO SCH (09:25)
[2020-01-23] MEDS ORDERED: LISINOPRIL 10 MG TABLET PO SCH ×3 (13:00→18:00)
--- NOTE | 2020-01-23 16:59 | PDOC PROGRESS REPORT ---
Subjective Progress Note for:: 01/23/20 Subjective:: Feeling well today. No complaints. No TABOR, CP, SOB, RUQ pain, N/v or vision changes. Bleeding light vaginally. Bowels moving and good UOP. Eating well. Ambulating without issues Breast feeding by pumping currently. Reports good milk production so far Reason For Visit: Physical Exam - Physical Exam Vital Signs: Temp Pulse Resp BP Pulse Ox 98.0 F 91 18 170/95 H 98 01/23/20 07:40 01/23/20 13:15 01/23/20 13:15 01/23/20 13:15 01/23/20 07:40 Intake & Output 01/22/20 01/23/20 01/24/20 06:59 06:59 06:59 Intake Total 1000 2980 700 Output Total 2400 Balance -1400 2980 700 General appearance: PRESENT: no acute distress, cooperative Respiratory exam: PRESENT: clear to auscultation keri, unlabored Cardiovascular exam: PRESENT: RRR GI/Abdominal exam: PRESENT: normal bowel sounds, soft Extremities exam: PRESENT: +1 edema, other - no clonus Result Laboratory Results: 01/20/20 05:45 01/19/20 22:07 Impressions: Obstetrics Ultrasound 01/18/20 03:50 IMPRESSION: LIMITED OBSTETRICAL ULTRASOUND WITH MEASURED PARAMETERS DELINEATED ABOVE. Trimester of : Third trimester - 28 weeks to delivery. Assessment & Plan - Diagnosis (1) Gestational hypertension affecting first Is this a current diagnosis for this admission?: Yes (2) Headache Qualifiers: Headache type: unspecified Is this a current diagnosis for this admission?: Yes (3) S/P primary low transverse Is this a current diagnosis for this admission?: Yes (4) Severe pre-eclampsia Qualifiers: Trimester: third trimester Qualified Code(s): O14.13 - Severe pre-ec lampsia, third trimester Is this a current diagnosis for this admission?: Yes - Time Time Spent with patient: 25-34 minutes Within: within 24 hours - 24 yo s/p PLTCS after failed IOL d/t NR FHT: diagnosis of severe preeclampsia prompting IOL -Doing well today without symptoms. -She was on Magnesium for 24 hours -B/Ps still not well controlled and severe range. She is taking Labetolol 400mg q 8 hours and Nifedipine 60mg XL. WIll add lisinopril 10mg daily. Call for b/p > 160 systolic or >110 diastolic . Also call for pulse <60 bpm. Please be sure to hold b/p medications if Pulse is < 100 systolic or < 60 diastolic or pulse is < 60 bpm. -Continue current care -Once b/p stabilized will plan discharge
[2020-01-23] MEDS ORDERED: LABETALOL HCL INJ 20 MG/4 ML DISP.SYRIN IV ONE ×2 (17:00→17:10)
[2020-01-24] MEDS: IBUPROFEN 800 MG TABLET PO SCH ×2 (06:53→11:18)
[2020-01-24] MEDS: LABETALOL HCL 200 MG TABLET PO SCH ×2 (06:53→14:35)
[2020-01-24] MEDS: PRENATAL VITAMIN W DHA CAPSULE PO SCH (11:17)
[2020-01-24] MEDS: DOCUSATE SODIUM 100 MG CAPSULE PO SCH (11:17)
[2020-01-24] MEDS: NIFEDIPINE 30 MG TAB.ER.24 PO SCH (11:19)
--- NOTE | 2020-01-24 13:55 | PDOC DISCHARGE SUMMARY ---
Impression - Admit/DC Date/PCP Admission Date/Primary Care Provider: 01/18/20 03:09 MAGALY UGALDE MD Discharge Date: 01/24/20 - POD #5, will discharge patient today, though plans to nest. BP precautions reviewed. A+., Rubella Immune, pumping. Denies h/a today - Discharge Diagnosis (1) Gestational hypertension affecting first Is this a current diagnosis for this admission?: Yes (2) Headache Is this a current diagnosis for this admission?: Yes (3) Intrauterine growth restriction (IUGR) affecting care of mother Is this a current diagnosis for this admission?: Yes (4) Non-reassuring electronic monitoring tracing Is this a current diagnosis for this admission?: Yes (5) S/P primary low transverse Is this a current diagnosis for this admission?: Yes (6) Severe pre-eclampsia Is this a current diagnosis for this admission?: Yes - Additional Information Resuscitation Status: Full Code Discharge Diet: As Tolerated, Regular Discharge Activity: Activity As Tolerated, No Driving, No Lifting Over 10 Pounds, Pelvic Rest Referrals: MAGALY UGALDE MD [Primary Care Provider] - Prescriptions: Ibuprofen [Motrin 800 mg Tablet] 800 mg PO Q6 #60 tablet Labetalol HCl [Normodyne 200 mg Tablet] 400 mg PO Q8 30 Days #90 tablet Oxycodone HCl/Acetaminophen [Percocet 5-325 mg Tablet] 1 tab PO Q4HP PRN #30 tablet PRN Reason: Lisinopril [Prinivil 10 mg Tablet] 10 mg PO DAILY@1800 30 Days #30 tablet Nifedipine [Procardia XL 30 mg Tablet] 60 mg PO DAILY 30 Days #60 tab.er.24 Home Medications: Ibuprofen [Motrin 800 mg Tablet] 800 mg PO Q6 #60 tablet 01/24/20 Labetalol HCl [Normodyne 200 mg Tablet] 400 mg PO Q8 30 Days #90 tablet 01/24/20 Lisinopril [Prinivil 10 mg Tablet] 10 mg PO DAILY@1800 30 Days #30 tablet 01/24/20 Nifedipine [Procardia XL 30 mg Tablet] 60 mg PO DAILY 30 Days #60 tab.er.24 01/24/20 Oxycodone HCl/Acetaminophen [Percocet 5-325 mg Tablet] 1 tab PO Q4HP PRN #30 tablet 01/24/20 Vit/Dha [ Multi + Dha Capsule] 1 cap PO DAILY capsule 01/24/20 HPI Reason(s) for Admission: Induction of Labor Admission Note: severe pre-eclampsia Procedures: NST, Ultrasound Intrapartum Procedure(s): : Low Cervical, Transverse Results Laboratory Results: WBC 18.1 10^3/uL (4.0-10.5) H 01/20/20 05:45 RBC 3.79 10^6/uL (3.72-5.28) 01/20/20 05:45 Hgb 10.4 g/dL (12.0-15.5) L 01/20/20 05:45 Hct 31.5 % (36.0-47.0) L 01/20/20 05:45 MCV 83 fl (80-97) 01/20/20 05:45 MCH 27.4 pg (27.0-33.4) 01/20/20 05:45 MCHC 32.9 g/dL (32.0-36.0) 01/20/20 05:45 RDW 17.4 % (11.5-14.0) H 01/20/20 05:45 Plt Count 185 10^3/uL (150-450) 01/20/20 05:45 Lymph % (Auto) 7.5 % (13-45) L 01/19/20 22:07 [place] % (Auto) 4.0 % (3-13) 01/19/20 22:07 Eos % (Auto) 0.0 % (0-6) 01/19/20 22:07 Baso % (Auto) 0.1 % (0-2) 01/19/20 22:07 Absolute Neuts (auto) 13.9 10^3/uL (1.7-8.2) H 01/19/20 22:07 Absolute Lymphs (auto) 1.2 10^3/uL (0.5-4.7) 01/19/20 22:07 Absolute Monos (auto) 0.6 10^3/uL (0.1-1.4) 01/19/20 22:07 Absolute Eos (auto) 0.0 10^3/uL (0.0-0.6) 01/19/20 22:07 Absolute Basos (auto) 0.0 10^3/uL (0.0-0.2) 01/19/20 22:07 Seg Neutrophils % 88.4 % (42-78) H 01/19/20 22:07 Sodium 128.1 mmol/L (137-145) L 01/19/20 22:07 Potassium 5.0 mmol/L (3.6-5.0) 01/19/20 22:07 Chloride 103 mmol/L (98-107) 01/19/20 22:07 Carbon Dioxide 21 mmol/L (22-30) L 01/19/20 22:07 Anion Gap 4 (5-19) L 01/19/20 22:07 BUN 11 mg/dL (7-20) 01/19/20 22:07 Creatinine 0.76 mg/dL (0.52-1.25) 01/19/20 22:07 Est GFR ( Amer) > 60 (>60) 01/19/20 22:07 Est GFR (MDRD) Non-Af > 60 (>60) 01/19/20 22:07 Glucose 111 mg/dL (75-110) H 01/19/20 22:07 Uric Acid 6.1 mg/dL (2.5-6.2) 01/19/20 22:07 Calcium 7.2 mg/dL (8.4-10.2) L 01/19/20 22:07 Total Bilirubin 0.3 mg/dL (0.2-1.3) 01/19/20 22:07 Direct Bilirubin 0.0 mg/dL (0.0-0.4) 01/19/20 22:07 Neonat Total Bilirubin Not Reportable 01/19/20 22:07 Neonat Direct Bilirubin Not Reportable 01/19/20 22:07 Neonat Indirect Bili Not Reportable 01/19/20 22:07 AST 38 U/L (14-36) H 01/19/20 22:07 ALT 52 U/L (<35) H 01/19/20 22:07 Alkaline Phosphatase 147 U/L (38-126) H 01/19/20 22:07 Lactate Dehydrogenase 292 U/L (120-246) H 01/19/20 22:07 Total Protein 5.7 g/dL (6.3-8.2) L 01/19/20 22:07 Albumin 2.9 g/dL (3.5-5.0) L 01/19/20 22:07 Ur 24 Hour Volume 3840 mL 01/18/20 17:00 Ur Total Protein 24 Hr 1467 mg/day (42-225) H 01/18/20 17:00 Urine Total Protein 38.2 mg/dL (<12) H 01/18/20 17:00 RPR NONREACTIVE (NONREACTIVE) 01/18/20 03:21 Chlamydia DNA (PCR) NOT DETECTED (NOT DETECT) 01/19/20 06:28 N.gonorrhoeae DNA (PCR) NOT DETECTED (NOT DETECT) 01/19/20 06:28 Blood Type A POSITIVE 01/18/20 03:21 Antibody Screen NEGATIVE 01/18/20 03:21 Impressions: Obstetrics Ultrasound 01/18/20 03:50 IMPRESSION: LIMITED OBSTETRICAL ULTRASOUND WITH MEASURED PARAMETERS DELINEATED ABOVE. Trimester of : Third trimester - 28 weeks to delivery. Plan Health Concerns: watch BP Plan of Treatment: D/c to home, pt to f/up with [facility] next week for BP and incision check, BP precautions reviewed Time Spent: Less than 30 Minutes
[2020-01-24 14:01] VITALS: BP 170/95
--- NOTE | 2020-01-25 11:48 | Admission Physical ---
Datetime Report Generated by CPN: 01/25/2020 11:48 CURRENT ADMISSION Chief Complaint: Signs/Symptoms Gestational HTN Indication for Induction: Not Applicable Admit Impression : , Intrauterine Admit Plan: Admit to Unit ALLERGIES Medication Allergies: No Medication Allergies: strawberry/SV/Hives (12/10/2019) Latex: Unknown Food Allergies: strawberries Environmental Allergies: n/a OBSTETRICAL HISTORY EDC: 03/02/2020 00:00 : 1 Para: 0 Term: 0 : 0 SAB: 0 IAB: 0 Ectopic: 0 Livin Cesareans: 0 VBACs: 0 Multiple Births: 0 Gestational Diabetes: No Rh Sensitization: No Incompetent Cervix: No LALITHA: No Infertility: No ART Treatment: No Uterine Anomaly: No IUGR: No Hx Previous C/S: No Macrosomia: No Hx Loss/Stillborn: No PIH: Yes Hx : No Placenta Previa/Abruption: No Depression/PP Depression: No PTL/PROM: No Post Hemorrhage: No Current Procedures: Ultrasound Obstetrical History Comments: G1- current SEE RECORDS Alcohol: No Marijuana : No Cocaine: No Other Illicit Drugs: No Cigarettes: Never Smoker. 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 Surgery: No Heart Disease: No Hosp/Surgery: Yes Autoimmune Disorder: No Anesthetic Complications: No Kidney Disease: No Abnormal Pap Smear: Yes Neuro/Epilepsy: No Psychiatric Disorders: Yes Other Medical Diseases: No Hepatitis/Liver Disease: No Significant Family History: No Varicosities/Phlebitis: No Trauma/Violence : No Thyroid Dysfunction: No Medical History Comments: anxiety, depression, childhood asthma, adenoidectomy 2006, surgery on right arm x2, ascus pap hpv 12/03/19 INFECTIOUS HISTORY Gonorrhea: No Genital Herpes: No Chlamydia: No Tuberculosis: No Syphilis: No Hepatitis: No HIV/AIDS Exposure: No Rash or Viral Illness: No HPV: Yes PHYSICAL EXAM General: Normal HEENT: Normal Neurologic: Normal Thyroid: Normal Heart: Normal Lungs: Normal Breast: Deferred Back: Normal Abdomen: Normal Genitourinary Exam: Normal Extremities: Normal DTRs: Normal Pelvic Type: Adequate Vital Signs: Reviewed FETUS A EGA: 33.5 FHR- Baseline: 130 Variability: Moderate 6-25bpm Decelerations: None FHR Category: Category I Admit Comment: Admit and evaluate for severe pre e. PLANS FOR LABOR AND DELIVERY Labor and Delivery: None Pain Management: Natural; Medications; Epidural Feeding Preference: Breast Benefit of Breast Feed Discussed: Yes Circumcision: N/A INFORMED CONSENT Signature: with User ID: [email or web address]
== END 2020-01-24 15:05 | disposition home or self-care (01) | DRG 787 ==
LOC: LC 02:43 → LR 03:09 → 2S 01-21 11:00
PROVIDERS: ADMIT Student in an Organized Health Care Education/Training Program; ATTEND Student in an Organized Health Care Education/Training Program
PROC: 10D00Z1 Extraction of Products of Conception, Low, Open Approach (ICD-10-PCS; principal; 2020-01-19)
DX: O14.14 Severe pre-eclampsia complicating childbirth (principal); O99.354 Diseases of the nervous system complicating childbirth; O36.5930 Maternal care for other known or suspected poor fetal growth, third trimester, not applicable or unspecified; G43.909 Migraine, unspecified, not intractable, without status migrainosus; O76 Abnormality in fetal heart rate and rhythm complicating labor and delivery; Z3A.33 33 weeks gestation of pregnancy; Z37.0 Single live birth
CPT/HCPCS: 1961; 36415; 76815; 80053; 83615; 84156; 84550; 85025; 85027; 86592; 86850; 86900; 86901; 87070; 87077; 87081; 87491; 87591; 88307; 94760; 94799; J0131; J0360; J0690; J0702; J1885; J2175; J2210; J2250; J2270; J2370; J2405; J2540; J2590; J3010; J3475; J3490; J7060

== ENCOUNTER 2020-01-24 18:50 | Observation (INO) | payer MEDICAID ==
--- NOTE | 2020-01-24 19:39 | ER Document Report ---
ED Medical Screen (RME) - General Chief Complaint: High Blood Pressure Stated Complaint: LEFT SIDE SWELLING/DIZZINESS Time Seen by Provider: 01/24/20 19:33 Primary Care Provider: MAGALY UGALDE MD [Primary Care Provider] - Follow up as needed Mode of Arrival: Ambulatory Information source: Patient Notes: 24-year-old female presented to ED for complaint of high blood pressure and bilateral pedal edema worse on the left. She states she just had a on Tuesday. She states she was discharged from the at 1400 today. She states she has had high blood pressure since 26 weeks and OB is put on multiple medications. She states she has had the swelling to the feet for the last several days. She states that she has a family history of CHF and eclampsia. She states she is very concerned because they discharged home with elevated blood pressure and her blood pressure is high at this time and she has pedal edema. I have greeted and performed a rapid initial assessment of this patient. A comprehensive ED assessment and evaluation of the patient, analysis of test results and completion of medical decision making process will be conducted by an additional ED providers. - Related Data Allergies/Adverse Reactions: strawberry Adverse Reaction (Severe, Verified 01/24/20 19:33) Hives Past Medical History Psychiatric Medical History: Reports: Hx Depression Physical Exam - Vital signs Vitals: Temp Pulse Resp BP Pulse Ox 98.6 F 103 H 18 160/101 H 98 01/24/20 19:16 01/24/20 19:16 01/24/20 19:16 01/24/20 19:16 01/24/20 19:16 Course - Vital Signs Vital signs: Temp Pulse Resp BP Pulse Ox 98.6 F 103 H 18 160/101 H 98 01/24/20 19:16 01/24/20 19:16 01/24/20 19:16 01/24/20 19:16 01/24/20 19:16 Doctor's Discharge - Discharge Referrals: MAGALY UGALDE MD [Primary Care Provider] - Follow up as needed
--- NOTE | 2020-01-24 19:59 | RADIOLOGY REPORT (SQ) ---
EXAM DESCRIPTION: CHEST 2 VIEWS IMAGES COMPLETED DATE/TIME: 01/24/2020 7:47 pm REASON FOR STUDY: Bilateral pedal edema COMPARISON: None. EXAM PARAMETERS: NUMBER OF VIEWS: two views TECHNIQUE: Digital Frontal and Lateral radiographic views of the chest acquired. RADIATION DOSE: NA LIMITATIONS: none FINDINGS: LUNGS AND PLEURA: No opacities, masses or pneumothorax. No pleural effusion. MEDIASTINUM AND HILAR STRUCTURES: No masses or contour abnormalities. HEART AND VASCULAR STRUCTURES: Heart normal size. No evidence for failure. BONES: No acute findings. HARDWARE: None in the chest. OTHER: No other significant finding. IMPRESSION: NO ACUTE RADIOGRAPHIC FINDING IN THE CHEST. TECHNICAL DOCUMENTATION: JOB ID: [id number] 2010 [employer]- All Rights Reserved Reading location - IP/workstation name: [email or web address]
[2020-01-24 20:16] LABS: ABSOLUTE BASOPHILS # (AUTO) 0.1 10^3/uL (0.0-0.2); ABSOLUTE EOSINOPHILS # (AUTO) 0.4 10^3/uL (0.0-0.6); ABSOLUTE LYMPHOCYTES (AUTO) 2.2 10^3/uL (0.5-4.7); ABSOLUTE MONOCYTES (AUTO) 0.8 10^3/uL (0.1-1.4); ABSOLUTE NEUT (AUTO) 8.1 10^3/uL (1.7-8.2); BASOPHILS % (AUTO) 0.5 % (0-2); HEMATOCRIT 34.6 % (36.0-47.0); HEMOGLOBIN 11.4 g/dL (12.0-15.5); LYMPHOCYTES % (AUTO) 19.3 % (13-45); MEAN CORPUSCULAR HEMOGLOBIN 27.6 pg (27.0-33.4); MEAN CORPUSCULAR HGB CONC 32.9 g/dL (32.0-36.0); MEAN CORPUSCULAR VOLUME 84 fl (80-97); MONOCYTES % (AUTO) 7.2 % (3-13); PLATELET COUNT 322 10^3/uL (150-450); RED BLOOD COUNT 4.13 10^6/uL (3.72-5.28); RED CELL DISTRIBUTION WIDTH 17.6 % (11.5-14.0); TOTAL CELLS COUNTED % (AUTO) 100 %; WHITE BLOOD COUNT 11.6 10^3/uL (4.0-10.5)
[2020-01-24 20:32] LABS: ALBUMIN 3.6 g/dL (3.5-5.0); ALKALINE PHOSPHATASE 104 U/L (38-126); ANION GAP 6 (5-19); ASPARTATE AMINO TRANSFERASE 37 U/L (14-36); BILIRUBIN,TOTAL 0.3 mg/dL (0.2-1.3); BLOOD UREA NITROGEN 14 mg/dL (7-20); CALCIUM 9.3 mg/dL (8.4-10.2); CARBON DIOXIDE 26 mmol/L (22-30); CHLORIDE 104 mmol/L (98-107); GLUCOSE 87 mg/dL (75-110); POTASSIUM 4.8 mmol/L (3.6-5.0); TOTAL PROTEIN 6.7 g/dL (6.3-8.2)
[2020-01-24 20:37] LABS: APPEARANCE,URINE CLEAR; BILIRUBIN,URINE NEGATIVE (NEGATIVE); COLOR,URINE YELLOW; GLUCOSE, URINE NEGATIVE (NEGATIVE); KETONES,URINE NEGATIVE (NEGATIVE); LEUKOCYTE ESTERASE,URINE NEGATIVE (NEGATIVE); NITRITE,URINE NEGATIVE (NEGATIVE); PROTEIN,URINE NEGATIVE (NEGATIVE); URINE SPECIFIC GRAVITY 1.013; UROBILINOGEN,URINE NEGATIVE mg/dL (<2.0)
[2020-01-24 20:41] LABS: NT PRO BNP 24 pg/mL (<125)
[2020-01-24 20:47] LABS: TROPONIN I < 0.012 ng/mL
--- NOTE | 2020-01-24 21:35 | RADIOLOGY REPORT (SQ) ---
Left lower extremity duplex venous ultrasonography HISTORY: Left leg swelling, rule out DVT. Technique: Duplex venous ultrasonography including color and spectral flow Doppler imaging was performed in left lower extremity, focusing on the deep venous system. FINDINGS: There is no evidence of thrombosis in the left common femoral, superficial femoral and popliteal veins. The veins are compressible and demonstrate normal response to augmentation. IMPRESSION: No evidence of DVT in left lower extremity.
--- NOTE | 2020-01-24 22:50 | ER Document Report ---
ED General - General Chief Complaint: High Blood Pressure Stated Complaint: LEFT SIDE SWELLING/DIZZINESS Time Seen by Provider: 01/24/20 19:33 Mode of Arrival: Ambulatory - [facility] Notes: 24-year-old female history of preeclampsia with few days ago just discharged today from L&D floor presents with persistent high blood pressures at home after discharge. Also complaining of bilateral lower extremity edema worse than left lower extremity. Patient denies chest pain, shortness of breath, although the has not noticed some exercise intolerance since her . Patient has been compliant with antihypertensives. Patient denies known history of hypertension before but had not seen a doctor for years until found out she was at 27 weeks. Pt endorses slight global headache. Patient denies hypercoagulopathy, cough, chest pain, fever, cardiac hx - Related Data Allergies/Adverse Reactions: strawberry Adverse Reaction (Severe, Verified 01/24/20 19:33) Hives Past Medical History - General Information source: Patient - Social History Smoking Status: Former Smoker Frequency of alcohol use: None Drug Abuse: None Family History: None Patient has homicidal ideation: No Psychiatric Medical History: Reports: Hx Depression Review of Systems - Review of Systems Notes: REVIEW OF SYSTEMS: CONSTITUTIONAL : Denies fever, chills, or sweats. EENT: Denies recent cold/sinus symptoms, denies throat pain CARDIOVASCULAR: Denies chest pain, +CALE RESPIRATORY: Denies cough, +SOTO GASTROINTESTINAL: Denies abdominal pain, nausea/vomiting. GENITOURINARY: Denies difficulty urinating, painful urination. FEMALE GENITOURINARY: Denies abnormal vaginal bleeding, vaginal discharge. MUSCULOSKELETAL: Denies neck pain, back pain. SKIN: Denies rash or skin lesions. HEMATOLOGIC : Denies easy bruising or bleeding. LYMPHATIC: Denies swollen, enlarged glands. NEUROLOGICAL: +headache, denies change in gait. PSYCHIATRIC: Denies anxiety or stress or depression. Physical Exam - Vital signs Vitals: Temp Pulse Resp BP Pulse Ox 98.6 F 103 H 18 160/101 H 98 01/24/20 19:16 01/24/20 19:16 01/24/20 19:16 01/24/20 19:16 01/24/20 19:16 - Notes Notes: PHYSICAL EXAMINATION: GENERAL: Well-appearing, well-nourished and in no acute distress. HEAD: Atraumatic, normocephalic. EYES: Pupils equal round and appropriate constriction, sclera anicteric, conjunctiva are normal. ENT: nares patent, moist mucous membranes. NECK: Normal range of motion, supple without lymphadenopathy LUNGS: Breath sounds clear to auscultation bilaterally and equal. No wheezes rales or rhonchi. HEART: Regular rate and rhythm without murmurs ABDOMEN: Soft, nontender, incision with Steri-Strips in place healing appropriately, no surrounding erythema no discharge EXTREMITIES: Normal range of motion, edema to bilateral lower extremities, left greater than right NEUROLOGICAL: Awake, alert, conversing appropriately, moves all extremities spontaneously, cranial nerves II through XII intact bilaterally, normal DTRs, normal [id number], normal gait, strength 5 out of 5 in all extremities, normal sensation PSYCH: Normal mood, normal affect. SKIN: Warm, Dry, normal turgor, no rashes or lesions noted. Course - Re-evaluation Re-evalutation: 01/25/20 01:33 Patient concerning for possible preeclampsia versus -induced cardio myopathy. Very well-appearing, no signs of any impending clinical decompensation, normal respiratory status. Patient has had several elevated BNPs previously. Less likely PE and left lower extremity ultrasound negative, but can be reassessed inpatient if clinical picture changes. Discussed case at length with Dr. Read who wanted patient to be admitted to her service and plans to have cardiology evaluate patient in the morning. - Vital Signs Vital signs: Temp Pulse Resp BP Pulse Ox 98.4 F 90 16 140/90 H 98 01/25/20 08:53 01/25/20 08:53 01/25/20 08:53 01/25/20 08:53 01/25/20 08:53 - Laboratory Result Diagrams: 01/24/20 19:55 01/24/20 19:55 Laboratory results interpreted by me: 01/24/20 01/24/20 19:55 19:55 WBC 11.6 H Hgb 11.4 L Hct 34.6 L RDW 17.6 H Sodium 136.2 L AST 37 H ALT 56 H - EKG Interpretation by Me Additional EKG results interpreted by me: 01/24/20 23:00 Rate 87, normal sinus rhythm, no significant ST elevations or depressions, no significant T wave abnormalities, QTc 448 Discharge - Discharge Clinical Impression: Hypertension affecting , delivered, current hospitalization Condition: Stable Disposition: ADMITTED INPATIENT Admitting Provider: Dr. Read Unit Admitted: Post
[2020-01-25] MEDS ORDERED: SIMETHICONE 80 MG TAB.CHEW PO PRN (01:36)
[2020-01-25] MEDS ORDERED: OXYCODONE-ACETAMINOPHEN 5-325 MG TABLET PO PRN ×2 (01:36)
[2020-01-25] MEDS ORDERED: ACETAMINOPHEN 325 MG TABLET PO PRN (01:36)
--- NOTE | 2020-01-25 01:36 | PDOC H&P ---
History of Present Illness Admission Date/PCP: 01/24/20 23:01 MAGALY UGALDE MD Patient complains of: TABOR, LE swelling, elevated BPs History of Present Illness: SOHAN WONG is a 24 year old female who was admitted 01/17 for elevated BPs and GHTN/CHTN and TABOR. also c/b severe IUGR. She was noted to have severe range BPs and evaluation revealed Severe PreE with very elevated 24 hr UTP and required Labetolol 600mg TID and Hydralazine 10mg po Q4 just for BP control. She was delivered on 01/18 by Primary section - see Op report and then continued on Magnesium sulfate pp for 24 hours. BPs initially were improved (and meds decreased to stopped) but then after being off mag sulfate for approx 6 hours BPs started to trend up so the BP meds restarted initially Labetolol 400mg TID then apparently over the course of the next couple of days had to have additional meds added. Labetolol 400mg TID Lisinopril 10mg po daily (added on 01/22) Procardia Xl 60mg po daily. She reportedly had better BPs 01/23 and was discharged to [facility]. Received a call that patient was c/o TABOR and LE swelling and inc BP this evening but because she was [facility] she went to the ER for evaluation and r/o DVT etc. DVT r/o and I requested patient be readmitted for additional BP control. Patient admits to significant THC use prior to finding out she was due to significant anxiety (reports remote thoughts of self harm due to situation in [place]). She also admits to limited care outside of . FH of CHF etc. 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 She lives with her mom (who is also a nurse). Past Medical History Gynecological Infection: No Baby 1 Female Year: 2,020 Weeks: 34 Delivery: : Low Cervical, Transverse Medical History: Other - possible CHTN Cardiac Medical History: Reports: Hypertension Pulmonary Medical History: Reports: None EENT Medical History: Reports: None Neurological Medical History: Reports: None Endocrine Medical History: Reports: None Renal/ Medical History: Reports: None Malignancy Medical History: Reports: None GI Medical History: Reports: None Musculoskeltal Medical History: Reports: None Skin Medical History: Reports: None Psychiatric Medical History: Reports: Depression Traumatic Medical History: Reports: None Infectious Medical History: Reports: None Past Surgical History Past Surgical History: Reports: Section Social History Information Source: Patient Lives with: Family Smoking Status: Former Smoker Electronic Cigarette use?: No Frequency of Alcohol Use: None Hx Recreational Drug Use: No Drugs: None Hx Prescription Drug Abuse: No - Advance Directive Resuscitation Status: Full Code Family History Family History: None Parental Family History Reviewed: No Children Family History Reviewed: NA Sibling(s) Family History Reviewed.: NA Medication/Allergy Home Medications: Ibuprofen [Motrin 800 mg Tablet] 800 mg PO Q6 #60 tablet 01/24/20 Labetalol HCl [Normodyne 200 mg Tablet] 400 mg PO Q8 30 Days #90 tablet 01/24/20 Lisinopril [Prinivil 10 mg Tablet] 10 mg PO DAILY@1800 30 Days #30 tablet 01/24/20 Nifedipine [Procardia XL 30 mg Tablet] 60 mg PO DAILY 30 Days #60 tab.er.24 01/24/20 Oxycodone HCl/Acetaminophen [Percocet 5-325 mg Tablet] 1 tab PO Q4 PRN #30 tab 01/24/20 Vit/Dha [ Multi + Dha Capsule] 1 cap PO DAILY capsule 01/24/20 Allergies/Adverse Reactions: strawberry Adverse Reaction (Severe, Verified 01/24/20 19:33) Kajal Review of Systems Constitutional: ABSENT: chills, fever(s), headache(s), weight gain, weight loss Eyes: ABSENT: visual disturbances Ears: ABSENT: hearing changes Cardiovascular: ABSENT: chest pain, dyspnea on exertion, edema, orthropnea, palpitations Respiratory: ABSENT: cough, hemoptysis Gastrointestinal: ABSENT: abdominal pain, constipation, diarrhea, hematemesis, hematochezia, nausea, vomiting Genitourinary: PRESENT: other - history of chronic holding urine. ABSENT: dysuria, hematuria Musculoskeletal: ABSENT: joint swelling Integumentary: ABSENT: rash, wounds Neurological: ABSENT: abnormal gait, abnormal speech, confusion, dizziness, focal weakness, syncope Psychiatric: PRESENT: anxiety, depression. ABSENT: homidical ideation, suicidal ideation Endocrine: ABSENT: cold intolerance, heat intolerance, polydipsia, polyuria Hematologic/Lymphatic: ABSENT: easy bleeding, easy bruising Physical Exam - Physical Exam Vital Signs: Temp Pulse Resp BP Pulse Ox 98.5 F 71 16 159/93 H 100 01/24/20 23:15 01/24/20 23:15 01/24/20 23:15 01/24/20 23:15 01/24/20 23:15 Intake & Output 01/23/20 01/24/20 01/25/20 06:59 06:59 06:59 Weight 104.4 kg General appearance: PRESENT: no acute distress, well-developed, well-nourished Head exam: PRESENT: atraumatic, normocephalic Neck exam: PRESENT: full ROM. ABSENT: carotid bruit, JVD, lymphadenopathy, thyromegaly Respiratory exam: PRESENT: clear to auscultation keri, symmetrical, unlabored Cardiovascular exam: PRESENT: RRR. ABSENT: diastolic murmur, rubs, systolic mur mur Pulses: PRESENT: normal dorsalis pedis pul, +2 pedal pulses bilateral Vascular exam: PRESENT: normal capillary refill GI/Abdominal exam: PRESENT: normal bowel sounds, soft, other - incision c/d/i. ABSENT: distended, guarding, mass, organolmegaly, rebound, tenderness Rectal exam: PRESENT: deferred Extremities exam: PRESENT: full ROM, +1 edema - very mild LE edema, nn pitting. ABSENT: calf tenderness, clubbing, pedal edema Neurological exam: PRESENT: alert, awake, oriented to person, oriented to place, oriented to time, oriented to situation, CN II-XII grossly intact. ABSENT: motor sensory deficit Psychiatric exam: PRESENT: appropriate affect, normal mood. ABSENT: homicidal ideation, suicidal ideation Skin exam: PRESENT: dry, intact, warm. ABSENT: cyanosis, rash Result Laboratory Results: 01/24/20 19:55 01/24/20 19:55 01/24/20 01/24/20 01/24/20 19:55 19:55 19:55 WBC 11.6 H RBC 4.13 Hgb 11.4 L Hct 34.6 L MCV 84 MCH 27.6 MCHC 32.9 RDW 17.6 H Plt Count 322 Seg Neutrophils % 70.0 Sodium 136.2 L Potassium 4.8 Chloride 104 Carbon Dioxide 26 Anion Gap 6 BUN 14 Creatinine 0.78 Est GFR ( Amer) > 60 Glucose 87 Calcium 9.3 Total Bilirubin 0.3 AST 37 H Alkaline Phosphatase 104 Total Protein 6.7 Albumin 3.6 Urine Color YELLOW Urine Appearance CLEAR Urine pH 6.0 Ur Specific [place] 1.013 Urine Protein NEGATIVE Urine Glucose (UA) NEGATIVE Urine Ketones NEGATIVE Urine Blood NEGATIVE Urine Nitrite NEGATIVE Ur Leukocyte Esterase NEGATIVE Urine WBC (Auto) 1 Urine RBC (Auto) 1 01/24/20 19:55 Troponin I < 0.012 NT-Pro-B Natriuret Pep 24 Impressions: Chest X-Ray 01/24/20 19:37 IMPRESSION: NO ACUTE RADIOGRAPHIC FINDING IN THE CHEST. Venous Doppler Study 01/24/20 19:40 IMPRESSION: No evidence of DVT in left lower extremity. Status: Imported from PACS Assessment & Plan - Diagnosis (1) Hypertension affecting , delivered, current hospitalization Is this a current diagnosis for this admission?: Yes Plan: Delivered on 01/18 for Severe PreE on suspected Chronic or GHTN. However, patient on 3 agents of BP meds which is unusual for PreE alone. will restart discharge BP meds Will split dose Procardia to Procardia XL 30mg BID due to procardia sometimes causes her TABOR and she needs BID dosing to improve BPs in the evening. Will add lasix - try low dose to not interfere with her Breast feeding the baby in the NICU. Called Cardiology due to concern for being on 3 agents for BP control. Also there was noted disparity in BPs b/w arms on the review of chart that appears were done after CNM eval and discharged patient. Dr. Santos will come see patient and eval tomorrow. We very much appreciate his help. (2) S/P primary low transverse Is this a current diagnosis for this admission?: Yes Plan: incision c/d/i. Pain meds written for. (3) Anxiety Is this a current diagnosis for this admission?: Yes Plan: Patient reports anxiety/depression even pror to . Used to self medicate with daily (or more) THC. She stopped THC use upon finding out she was . Reviewed anxiety and its impact on BPs and d/w patient Buspar, Vistaril, Valium. Pt declines valium and would like to try Vistaril and antidepressant. Rxs added. - Time Time Spent: 30 to 50 Minutes Medications reviewed and adjusted accordingly: Yes Anticipated discharge: Home Within: within 72 hours - Inpatient Certification Based on my medical assessment, after consideration of the patient's comorbidities, presenting symptoms, or acuity I expect that the services needed warrant INPATIENT care.: Yes I certify that my determination is in accordance with my understanding of Medicare's requirements for reasonable and necessary INPATIENT services [42 CFR 412.3e].: Yes Medical Necessity: Need Close Monitoring Due to Risk of Patient Decompensation Post Hospital Care: D/C Unpaid Intern Documentation - Plan Summary Plan Summary: readmited to floor.
[2020-01-25] MEDS ORDERED: HYDROXYZINE PAMOATE 50 MG CAPSULE PO ONE (02:00)
[2020-01-25] MEDS ORDERED: LISINOPRIL 10 MG TABLET PO ONE (02:00)
[2020-01-25] MEDS ORDERED: FUROSEMIDE 20 MG TABLET PO ONE (03:00)
[2020-01-25] MEDS: LABETALOL HCL 200 MG TABLET PO SCH ×3 (06:41→22:29)
[2020-01-25] MEDS: IBUPROFEN 800 MG TABLET PO SCH ×3 (06:41→22:29)
[2020-01-25] MEDS: PRENATAL VITAMIN W DHA CAPSULE PO SCH (09:24)
[2020-01-25] MEDS: FUROSEMIDE 20 MG TABLET PO SCH ×2 (09:24→17:28)
[2020-01-25] MEDS: NIFEDIPINE 30 MG TAB.ER.24 PO SCH ×2 (09:24→22:28)
[2020-01-25] MEDS: DOCUSATE SODIUM 100 MG CAPSULE PO SCH ×2 (09:24→17:28)
[2020-01-25] MEDS: SERTRALINE HCL 50 MG TABLET PO SCH (09:25)
--- NOTE | 2020-01-25 11:39 | PDOC CONSULTATION ---
Consultation Consult Date: 01/25/20 Attending physician:: MAGALY UGALDE Provider Consulted: DEVONTE DELGADO Consult reason:: Difficult to control hypertension History of Present Illness Admission Date/PCP: 01/24/20 23:01 MAGALY UGALDE MD Patient complains of: No symptoms History of Present Illness: SOHAN WONG is a 24 year old female Who is status post and is delivered of a baby on January 19, 2020. was complicated by hypertension. Cardiology input is requested as patient has had difficult to control hypertension post delivery of baby. She has required 3 agents for control of blood pressure. No symptoms are reported. There is no prior mention of hypertension or diabetes mellitus. Patient had uneventful childhood. No major illnesses reported. Was on no medications on a regular basis. Other than related to no symptoms reported. There is no effort related intolerance, chest pain, dyspnea, dizziness or syncope. Patient works as a nurse. She specializes in alcohol and substance abuse addiction. She herself does not smoke tobacco. She uses alcohol very rarely. No drug use is reported. Surgical history includes adenoidectomy and corrective surgery for right shoulder dystocia related to delivery. Past Medical History Cardiac Medical History: Reports: Hypertension Pulmonary Medical History: Reports: None EENT Medical History: Reports: None Neurological Medical History: Reports: None Endocrine Medical History: Reports: None Renal/ Medical History: Reports: None Malignancy Medical History: Reports: None GI Medical History: Reports: None Musculoskeltal Medical History: Reports: None Skin Medical History: Reports: None Psychiatric Medical History: Reports: Depression Traumatic Medical History: Reports: None Infectious Medical History: Reports: None Past Surgical History Past Surgical History: Reports: Section Social History Lives with: Family Smoking Status: Former Smoker Electronic Cigarette use?: No Frequency of Alcohol Use: None Hx Recreational Drug Use: No Drugs: None Hx Prescription Drug Abuse: No - Advance Directive Resuscitation Status: Full Code Family History Family History: None Parental Family History Reviewed: Yes - Family history of heart problems. Mother had defibrillator and was shocked Children Family History Reviewed: NA Sibling(s) Family History Reviewed.: NA Medication/Allergy Home Medications: Ibuprofen [Motrin 800 mg Tablet] 800 mg PO Q6 #60 tablet 01/24/20 Labetalol HCl [Normodyne 200 mg Tablet] 400 mg PO Q8 30 Days #90 tablet 06/11/20 Lisinopril [Prinivil 10 mg Tablet] 10 mg PO DAILY@1800 30 Days #30 tablet 01/24/20 Nifedipine [Procardia XL 30 mg Tablet] 60 mg PO DAILY 30 Days #60 tab.er.24 01/24/20 Oxycodone HCl/Acetaminophen [Percocet 5-325 mg Tablet] 1 tab PO Q4 PRN #30 tab 01/24/20 Vit/Dha [ Multi + Dha Capsule] 1 cap PO DAILY capsule 01/24/20 Allergies/Adverse Reactions: strawberry Adverse Reaction (Severe, Verified 01/24/20 19:33) Hives Review of Systems Constitutional: PRESENT: as per HPI Cardiovascular: ABSENT: as per HPI, chest pain, dyspnea on exertion, edema, orthropnea, palpitations, other Respiratory: ABSENT: as per HPI, cough, dyspnea, hemoptysis, sputum, other Physical Exam Vital Signs: Temp Pulse Resp BP Pulse Ox 99.1 F 96 18 146/90 H 99 01/25/20 11:17 01/25/20 11:17 01/25/20 11:17 01/25/20 11:17 01/25/20 11:17 Intake & Output 01/24/20 01/25/20 01/26/20 06:59 06:59 06:59 Output Total 1350 Balance -1350 Weight 107.3 kg General appearance: PRESENT: no acute distress, cooperative, well-developed, well-nourished Head exam: PRESENT: atraumatic, normocephalic Eye exam: PRESENT: conjunctiva pink, EOMI Mouth exam: PRESENT: moist Respiratory exam: PRESENT: clear to auscultation keri, symmetrical, unlabored Cardiovascular exam: PRESENT: RRR, +S1, +S2, systolic murmur - Ejection systolic murmur in the pulmonic area. S2 appears to be variable. Pulses: PRESENT: normal radial pulses GI/Abdominal exam: PRESENT: soft Rectal exam: PRESENT: deferred Neurological exam: PRESENT: alert, awake, oriented to person, oriented to place, oriented to time Psychiatric exam: PRESENT: appropriate affect Skin exam: PRESENT: dry, intact, normal color Results Laboratory Results: 01/24/20 19:55 01/24/20 19:55 01/24/20 01/24/20 01/24/20 19:55 19:55 19:55 WBC 11.6 H RBC 4.13 Hgb 11.4 L Hct 34.6 L MCV 84 MCH 27.6 MCHC 32.9 RDW 17.6 H Plt Count 322 Seg Neutrophils % 70.0 Sodium 136.2 L Potassium 4.8 Chloride 104 Carbon Dioxide 26 Anion Gap 6 BUN 14 Creatinine 0.78 Est GFR ( Amer) > 60 Glucose 87 Calcium 9.3 Total Bilirubin 0.3 AST 37 H Alkaline Phosphatase 104 Total Protein 6.7 Albumin 3.6 Urine Color YELLOW Urine Appearance CLEAR Urine pH 6.0 Ur Specific [place] 1.013 Urine Protein NEGATIVE Urine Glucose (UA) NEGATIVE Urine Ketones NEGATIVE Urine Blood NEGATIVE Urine Nitrite NEGATIVE Ur Leukocyte Esterase NEGATIVE Urine WBC (Auto) 1 Urine RBC (Auto) 1 01/24/20 19:55 Troponin I < 0.012 NT-Pro-B Natriuret Pep 24 EKG Comments: Chest x-ray was seen reviewed independently and shows prominent pulmonary v ascular markings in the perihilar area which could be consistent with post Twelve-lead EKG 01/24/2020. Independently reviewed by me. Sinus rhythm, 87 bpm, normal AV conduction, QTC is 440 ms Lab data Hemoglobin 11.4 Hematocrit 34.6 Platelet count 322 White blood cell count 11.6 Creatinine is 0.78 Impressions: Chest X-Ray 01/24/20 19:37 IMPRESSION: NO ACUTE RADIOGRAPHIC FINDING IN THE CHEST. Venous Doppler Study 01/24/20 19:40 IMPRESSION: No evidence of DVT in left lower extremity. Assessment & Plan - Notes Notes: Probable -induced hypertension Agree with current regimen medications consisting of labetalol, furosemide and Procardia which has resulted in better control of high blood pressure I suspect as she moves away from the nancie-gestational. Her blood pressure is going to be better controlled and she is going to need fewer and perhaps lower doses of medication. I do appreciate a systolic murmur on auscultation which is probably flow related due to her state and hyperdynamic circulatory state. I suspect this is going to subside. We should follow-up with an outpatient evaluation. There has been some mention of discrepancy in blood pressure readings in the upper extremity. Again this can be followed as an outpatient.
--- NOTE | 2020-01-25 19:07 | EKG REPORT ---
SEVERITY:- NORMAL ECG - SINUS RHYTHM : Confirmed by: Stephanie Ventura MD 25-Jan-2020 19:06:53
[2020-01-25] MEDS ORDERED: HYDROXYZINE PAMOATE 50 MG CAPSULE PO SCH (22:00)
[2020-01-26] MEDS: IBUPROFEN 800 MG TABLET PO SCH (05:32)
[2020-01-26] MEDS: LABETALOL HCL 200 MG TABLET PO SCH ×2 (05:32→14:34)
--- NOTE | 2020-01-26 09:26 | PDOC DISCHARGE SUMMARY ---
Impression - Admit/DC Date/PCP Admission Date/Primary Care Provider: 01/24/20 23:01 MAGALY UGALDE MD Discharge Date: 01/26/20 - Discharge Diagnosis (1) Gestational hypertension affecting first Is this a current diagnosis for this admission?: Yes - Assessment Summary: She was readmitted for hypertension which is now much improved. The BP documented this morning is now normal. We will have her followup next week. - Additional Information Resuscitation Status: Full Code Discharge Diet: As Tolerated Discharge Activity: Pelvic Rest Referrals: MAGALY UGALDE MD [Primary Care Provider] - Follow up as needed Home Medications: Ibuprofen [Motrin 800 mg Tablet] 800 mg PO Q6 #60 tablet 01/24/20 Labetalol HCl [Normodyne 200 mg Tablet] 400 mg PO Q8 30 Days #90 tablet 01/24/20 Lisinopril [Prinivil 10 mg Tablet] 10 mg PO DAILY@1800 30 Days #30 tablet 01/24/20 Nifedipine [Procardia XL 30 mg Tablet] 60 mg PO DAILY 30 Days #60 tab.er.24 01/24/20 Oxycodone HCl/Acetaminophen [Percocet 5-325 mg Tablet] 1 tab PO Q4 PRN #30 tab 01/24/20 Vit/Dha [ Multi + Dha Capsule] 1 cap PO DAILY capsule 01/24/20 Additional Information: Followup next week. History of Present Illiness History of Present Illness: SOHAN WONG is a 24 year old female Physical Exam - Physical Exam Vital Signs: Temp Pulse Resp BP Pulse Ox 97.9 F 75 18 128/74 H 98 01/26/20 08:00 01/26/20 08:00 01/26/20 08:00 01/26/20 08:00 01/26/20 08:00 Intake & Output 01/25/20 01/26/20 01/27/20 06:59 06:59 06:59 Intake Total 500 Output Total 1350 5 Balance -1350 495 Weight 107.3 kg 107 kg Results Laboratory Results: WBC 11.6 10^3/uL (4.0-10.5) H 01/24/20 19:55 RBC 4.13 10^6/uL (3.72-5.28) 01/24/20 19:55 Hgb 11.4 g/dL (12.0-15.5) L 01/24/20 19:55 Hct 34.6 % (36.0-47.0) L 01/24/20 19:55 MCV 84 fl (80-97) 01/24/20 19:55 MCH 27.6 pg (27.0-33.4) 01/24/20 19:55 MCHC 32.9 g/dL (32.0-36.0) 01/24/20 19:55 RDW 17.6 % (11.5-14.0) H 01/24/20 19:55 Plt Count 322 10^3/uL (150-450) 01/24/20 19:55 Lymph % (Auto) 19.3 % (13-45) 01/24/20 19:55 [place] % (Auto) 7.2 % (3-13) 01/24/20 19:55 Eos % (Auto) 3.0 % (0-6) 01/24/20 19:55 Baso % (Auto) 0.5 % (0-2) 01/24/20 19:55 Absolute Neuts (auto) 8.1 10^3/uL (1.7-8.2) 01/24/20 19:55 Absolute Lymphs (auto) 2.2 10^3/uL (0.5-4.7) 01/24/20 19:55 Absolute Monos (auto) 0.8 10^3/uL (0.1-1.4) 01/24/20 19:55 Absolute Eos (auto) 0.4 10^3/uL (0.0-0.6) 01/24/20 19:55 Absolute Basos (auto) 0.1 10^3/uL (0.0-0.2) 01/24/20 19:55 Seg Neutrophils % 70.0 % (42-78) 01/24/20 19:55 Sodium 136.2 mmol/L (137-145) L 01/24/20 19:55 Potassium 4.8 mmol/L (3.6-5.0) 01/24/20 19:55 Chloride 104 mmol/L (98-107) 01/24/20 19:55 Carbon Dioxide 26 mmol/L (22-30) 01/24/20 19:55 Anion Gap 6 (5-19) 06/11/20 19:55 BUN 14 mg/dL (7-20) 01/24/20 19:55 Creatinine 0.78 mg/dL (0.52-1.25) 01/24/20 19:55 Est GFR ( Amer) > 60 (>60) 01/24/20 19:55 Est GFR (MDRD) Non-Af > 60 (>60) 01/24/20 19:55 Glucose 87 mg/dL (75-110) 01/24/20 19:55 Calcium 9.3 mg/dL (8.4-10.2) 01/24/20 19:55 Total Bilirubin 0.3 mg/dL (0.2-1.3) 01/24/20 19:55 Direct Bilirubin 0.0 mg/dL (0.0-0.4) 01/24/20 19:55 Neonat Total Bilirubin Not Reportable 01/24/20 19:55 Neonat Direct Bilirubin Not Reportable 01/24/20 19:55 Neonat Indirect Bili Not Reportable 01/24/20 19:55 AST 37 U/L (14-36) H 01/24/20 19:55 ALT 56 U/L (<35) H 01/24/20 19:55 Alkaline Phosphatase 104 U/L (38-126) 01/24/20 19:55 Troponin I < 0.012 ng/mL 01/24/20 19:55 NT-Pro-B Natriuret Pep 24 pg/mL (<125) 01/24/20 19:55 Total Protein 6.7 g/dL (6.3-8.2) 01/24/20 19:55 Albumin 3.6 g/dL (3.5-5.0) 01/24/20 19:55 Urine Color YELLOW 01/24/20 19:55 Urine Appearance CLEAR 01/24/20 19:55 Urine pH 6.0 (5.0-9.0) 01/24/20 19:55 Ur Specific [place] 1.013 01/24/20 19:55 Urine Protein NEGATIVE mg/dL (NEGATIVE) 01/24/20 19:55 Urine Glucose (UA) NEGATIVE mg/dL (NEGATIVE) 01/24/20 19:55 Urine Ketones NEGATIVE mg/dL (NEGATIVE) 01/24/20 19:55 Urine Blood NEGATIVE (NEGATIVE) 01/24/20 19:55 Urine Nitrite NEGATIVE (NEGATIVE) 01/24/20 19:55 Urine Bilirubin NEGATIVE (NEGATIVE) 01/24/20 19:55 Urine Urobilinogen NEGATIVE mg/dL (<2.0) 01/24/20 19:55 Ur Leukocyte Esterase NEGATIVE (NEGATIVE) 01/24/20 19:55 Urine WBC (Auto) 1 /HPF 01/24/20 19:55 Urine RBC (Auto) 1 /HPF 01/24/20 19:55 U Hyaline Cast (Auto) 1 /LPF 01/24/20 19:55 Squamous Epi Cells Auto 1 /HPF 01/24/20 19:55 Urine Mucus (Auto) RARE /LPF 01/24/20 19:55 Urine Ascorbic Acid NEGATIVE (NEGATIVE) 01/24/20 19:55 01/24/20 19:55 Troponin I < 0.012 NT-Pro-B Natriuret Pep 24 Impressions: Chest X-Ray 01/24/20 19:37 IMPRESSION: NO ACUTE RADIOGRAPHIC FINDING IN THE CHEST. Venous Doppler Study 01/24/20 19:40 IMPRESSION: No evidence of DVT in left lower extremity. Stroke Is this a Stroke Patient?: No Acute Heart Failure - Is this a Heart Failure Patient?: No
[2020-01-26] MEDS: SERTRALINE HCL 50 MG TABLET PO SCH (10:18)
[2020-01-26] MEDS: DOCUSATE SODIUM 100 MG CAPSULE PO SCH (10:18)
[2020-01-26] MEDS: FUROSEMIDE 20 MG TABLET PO SCH (10:18)
[2020-01-26] MEDS: NIFEDIPINE 30 MG TAB.ER.24 PO SCH (10:18)
[2020-01-26] MEDS: PRENATAL VITAMIN W DHA CAPSULE PO SCH (10:18)
[2020-01-26 14:14] VITALS: BP 138/78
--- NOTE | 2020-01-26 14:32 | PDOC PROGRESS REPORT ---
Subjective Progress Note for:: 01/26/20 Subjective:: Patient seen and examined. Resting in bed. Enjoying her lunch. No complaints. Blood pressure is better controlled. Anticipate discharge in the afternoon. Reason For Visit: CHTIN,PP,PREE Physical Exam Vital Signs: Temp Pulse Resp BP Pulse Ox 99.0 F 87 18 138/78 H 92 01/26/20 14:08 01/26/20 14:08 01/26/20 14:08 01/26/20 14:08 01/26/20 14:08 Intake & Output 01/25/20 01/26/20 01/27/20 06:59 06:59 06:59 Intake Total 500 Output Total 1350 5 Balance -1350 495 Weight 107.3 kg 107 kg General appearance: PRESENT: no acute distress, cooperative, well-developed, well-nourished Head exam: PRESENT: atraumatic, normocephalic Eye exam: PRESENT: conjunctiva pink, EOMI Mouth exam: PRESENT: moist Respiratory exam: PRESENT: clear to auscultation keri, symmetrical, unlabored Cardiovascular exam: PRESENT: RRR, +S1, +S2, systolic murmur - Systolic ejection murmur in the pulmonic area. 2 out of 6. Pulses: PRESENT: normal radial pulses GI/Abdominal exam: PRESENT: soft Rectal exam: PRESENT: deferred Musculoskeletal exam: PRESENT: normal inspection Neurological exam: PRESENT: alert, awake, oriented to person, oriented to place, oriented to time Psychiatric exam: PRESENT: appropriate affect Skin exam: PRESENT: dry, intact Results Laboratory Results: 01/24/20 19:55 01/24/20 19:55 01/24/20 19:55 Troponin I < 0.012 NT-Pro-B Natriuret Pep 24 Impressions: Chest X-Ray 01/24/20 19:37 IMPRESSION: NO ACUTE RADIOGRAPHIC FINDING IN THE CHEST. Venous Doppler Study 01/24/20 19:40 IMPRESSION: No evidence of DVT in left lower extremity. Assessment & Plan - Diagnosis (1) Hypertension affecting , delivered, current hospitalization Is this a current diagnosis for this admission?: Yes Plan: Likely -induced hypertension Blood pressures are improving I had a detailed discussion with the patient regarding the fact that her medication regimen will need to be altered especially as blood pressures normalized in the next few days very likely. I recommended that the lisinopril be stopped initially followed by the Procardia XL and with plans to wean the labetalol to off. The diuretic can also be stopped. On today's auscultation the murmur is much fainter suggesting hyperdynamic circulation rather than organic valvular disease. If she continues to have a murmur in the later weeks we will have to do an echocardiogram. This was also discussed.
== END 2020-01-26 15:00 | disposition home or self-care (01) ==
LOC: ER 18:50 → EH 23:01 → 2N 01-25 00:47
PROVIDERS: ADMIT Student in an Organized Health Care Education/Training Program; ATTEND Student in an Organized Health Care Education/Training Program
DX: O13.5 Gestational [pregnancy-induced] hypertension without significant proteinuria, complicating the puerperium (principal); O99.89 Other specified diseases and conditions complicating pregnancy, childbirth and the puerperium; R01.1 Cardiac murmur, unspecified; O99.345 Other mental disorders complicating the puerperium; F41.9 Anxiety disorder, unspecified; F53.0 Postpartum depression; Z79.899 Other long term (current) drug therapy; Z82.49 Family history of ischemic heart disease and other diseases of the circulatory system; Z87.891 Personal history of nicotine dependence
CPT/HCPCS: 93005; 99285; 36415; 85025; 80053; 81001; 84484; 83880; 93971; 71046; 94799; 93010; J3490 ×16; G0378